=== PATIENT | female | born 1950 | race Caucasian/White ===

== ENCOUNTER 2018-11-07 12:14 | Inpatient (IN) ==
[2018-11-07] MEDS ORDERED: Ringers Solution, Lactated 1,000 ML IVC SCH (13:00)
[2018-11-07] MEDS ORDERED: Acetaminophen IV 1,000 MG/100 ML INFUS..BTL IVPB ONE (13:55)
[2018-11-07] MEDS ORDERED: Famotidine 20 MG/2 ML VIAL IVP ONE (13:55)
[2018-11-07] MEDS ORDERED: traMADol 50 MG TABLET PO ONE ×2 (13:56→14:10)
--- NOTE | 2018-11-07 14:01 | Anesthesia Evaluation PreOp ---
Date of Encounter: 11/07/18 Time of Encounter: 14:00 - Past History Planned Operation: Robotic Lap Assisted Cholecystectomy Cardiac History: HTN, Hyperlipidemia, Other (CAD Left Heart Cath showed mod CAD normal EF) Pulmonary History: Former smoker, COPD GATE CUTTER History: CVA (Residual Left sided weakness), Other (Restless Leg) Other Medical History: Renal (CKD), Diabetes Type II, GERD, Other (Morbid Obesity) Anesthesia History: No Prior Anesthetic Complications : No Alcohol Use: occasionally, heavy Drug use: none Medications and Allergies Albuterol Sulfate [Ventolin Hfa] 2 gm IH Q6H PRN 07/28/18 [History] Buspirone HCl [Buspar] 10 mg PO QAM 07/28/18 [History] Insulin ASPART [Novolog Flexpen] 2 - 10 unit SQ QID 07/28/18 [History] Simvastatin [Zocor] 40 mg PO DAILY 07/28/18 [History] Tizanidine HCl [Zanaflex] 4 mg PO HS 07/28/18 [History] Trazodone HCl 100 mg PO HS 07/28/18 [History] Aspirin 81 mg PO DAILY 09/19/18 [History] Acetaminophen [Extra Strength Non-Aspirin] 1,000 mg PO Q4H PRN 11/07/18 [History] Insulin DETEMIR [Levemir] 48 units SQ DAILY 11/07/18 [History] Insulin DETEMIR [Levemir] 60 units SQ HS 11/07/18 [History] Lisinopril [Zestril] 10 mg PO DAILY 11/07/18 [History] Allergy/AdvReac Type Severity Reaction Status Date / Time Amoxicillin [From Augmentin] Allergy See Verified 11/07/18 13:03 Comments clavulanic acid Allergy See Verified 11/07/18 13:03 [From Augmentin] Comments nitrofurantoin Allergy unknown Verified 11/07/18 13:03 sertraline [From Zoloft] Allergy unknown Verified 11/07/18 13:03 shellfish derived Allergy Anaphylaxis Verified 11/07/18 13:03 Sulfa (Sulfonamide Allergy Hives Verified 11/07/18 13:03 Antibiotics) meperidine [From Demerol] AdvReac Headache Verified 11/07/18 13:03 - Meds/Allergy Pre-op Review Medications Reviewed: Yes Allergies Reviewed: Yes Beta Blockers on Current Med List: No Anesthesia Results - Labs Laboratory Tests 10/23/18 10/23/18 11:47 11:47 Hgb 11.5 Hct 38.1 Plt Count 143 Sodium 136 Potassium 5.6 H BUN 49 H Creatinine 1.39 H - Imaging EKG: report reviewed (SR) Anesthesia Exam O2 Sat Height 1.7 m Height 1.7 m Weight 137.438 kg Weight 137.438 kg O2 Sat by Pulse Oximetry 100 Vital Signs Temp Pulse Resp BP Pulse Ox 98.2 F 86 18 123/57 100 11/07/18 12:48 11/07/18 12:48 11/07/18 12:48 11/07/18 12:48 11/07/18 12:48 Height: 5'7 Weight: 303 lbs NPO (# of Hours): MN Pain Scale: 0 - HEENT Pupil (Motor): Pupils equal, EOMI Mallampati: III Denture Type: Upper: Complete (upper dentures) Oral Opening: Less than or equal to 3 - GATE CUTTER LOC: Oriented GATE CUTTER Motor: Normal RUE, Normal RLE, Normal Face, Deficit LUE (weakness), Deficit LLE GATE CUTTER Sensory: Normal: RUE, LUE (slight paresthesia), RLE, LLE, Face - Cardiac Rhythm: Regular Murmur: None JVD: No Carotid Bruit: No - Pulmonary Breath Sounds: bilateral Clear Respiratory Effort: Symmetrical Anesthesia Assess/Plan ASA Score: 3 (HTN COPD MO DM CKD CVA) Level of consciousness: Cooperative, Oriented Anesthetic Plan: General Autologous Blood: No Monitoring Plan: Standard Monitors Recovery Plan: PACU (Discussed GA, agrees to proceed)
[2018-11-07] MEDS ORDERED: CeFAZolin Syr 3,000MG/30 ML 3,000 MG/30 ML SYRINGE IVPB ONE (14:28)
--- NOTE | 2018-11-07 14:39 | General Surg History&Physical ---
Date of Encounter: 11/07/18 Time of Encounter: 14:37 Assessment and Plan (1) Symptomatic cholelithiasis Current Visit: Yes Status: Chronic The assessment and plan as outlined above was discussed with the patient and/or family members who expressed understanding and agreement. All questions were answered. planning robotic cholecystectomy, possible cholangiograms/open, consent previously obtained History of Present Illness Chief complaint: symptomatic cholelithiasis HPI: Ms. Triana is a 67 year old female with symptomatic cholelithiasis, lft/wbc wnl. Past Med Surg Social Fam HX - Past Medical History Medical history: cancer, CVA, diabetes, GERD, hyperlipidemia, hypertension Additional medical history: right side weakness CVA. rectal CA and cervical CA with chemo and radiation Psychiatric history: anxiety, depression, prior suicide attempt, schizophrenia - Past Surgical History Surgical History: cancer surgery, colectomy, other Additional surgical history: colon cancer. gastric bypass - Social History Smoking Status: Former smoker Smokeless Tobacco Status: No Alcohol use: occasionally, heavy Drug use: none - Family History Mother Living Status: Hx Family Cardiac Disorders: Yes (father heart attacks) Hx Family Respiratory Disorders: Yes (dad unknown, smoker) Hx Family Cancer: Yes (mother, utreus) Hx Family GI Disorders: No Hx Family Endocrine Disorder: Yes (mother DM) Hx Family Neuromuscular Disorders: No Hx Family Neurologic Disorders: No Hx Family HEENT Disorders: No Hx Family Autoimmune Disorders: No Medications and Allergies Albuterol Sulfate [Ventolin Hfa] 2 gm IH Q6H PRN 07/28/18 [History] Buspirone HCl [Buspar] 10 mg PO QAM 07/28/18 [History] Insulin ASPART [Novolog Flexpen] 2 - 10 unit SQ QID 07/28/18 [History] Simvastatin [Zocor] 40 mg PO DAILY 07/28/18 [History] Tizanidine HCl [Zanaflex] 4 mg PO HS 07/28/18 [History] Trazodone HCl 100 mg PO HS 07/28/18 [History] Aspirin 81 mg PO DAILY 09/19/18 [History] Acetaminophen [Extra Strength Non-Aspirin] 1,000 mg PO Q4H PRN 11/07/18 [History] Insulin DETEMIR [Levemir] 48 units SQ DAILY 11/07/18 [History] Insulin DETEMIR [Levemir] 60 units SQ HS 11/07/18 [History] Lisinopril [Zestril] 10 mg PO DAILY 11/07/18 [History] Allergy/AdvReac Type Severity Reaction Status Date / Time Amoxicillin [From Augmentin] Allergy See Verified 11/07/18 13:03 Comments clavulanic acid Allergy See Verified 11/07/18 13:03 [From Augmentin] Comments nitrofurantoin Allergy unknown Verified 11/07/18 13:03 sertraline [From Zoloft] Allergy unknown Verified 11/07/18 13:03 shellfish derived Allergy Anaphylaxis Verified 11/07/18 13:03 Sulfa (Sulfonamide Allergy Hives Verified 11/07/18 13:03 Antibiotics) meperidine [From Demerol] AdvReac Headache Verified 11/07/18 13:03 Review of Systems All systems PM: reviewed and no additional remarkable complaints except as stated All systems PM: The remainder of the systems were reviewed and are negative General Surgery Exam Initial Vital Signs Temp Pulse Resp BP Pulse Ox 98.2 F 86 18 123/57 100 11/07/18 12:48 11/07/18 12:48 11/07/18 12:48 11/07/18 12:48 11/07/18 12:48 - General physical appearance well nourished, no distress, obese - Eyes PERRL, normal ocular movement - ENT normal mucosa, normocephalic - Neck trachea midline - Respiratory normal expansion, normal respiratory effort - Cardiovascular Cardiovascular exam: Present: RRR - Abdomen Abdomen general surgery: Present: soft, non tender - Integumentary Integumentary general surgery: Present: no abnormal pigmentation Results - Labs Abnormal lab results POC Glucose 107 mg/dL (70-99) H 11/07/18 12:45 All other labs normal.
--- NOTE | 2018-11-07 14:40 | Operative Note ---
Date of procedure: 11/07/18 Pre-op diagnosis: symptomatic cholelithiasis Post-op diagnosis: same Procedure: Anesthesia induction, skin incision Complications: hypotension Anesthesia: MASHAA, local Surgeon: Nathaly Segovia Was there an registered sales assistant present: Yes Louver Mortiser Operator: Shannan España Estimated blood loss (cc): 1 Specimen: none Condition: other Disposition: PACU Procedure in Detail: Patient was brought into the operating suite and placed supine on the operating table. Sign in was performed and everyone was in agreement. Anesthesia was induced and patient was endotracheally intubated by anesthesia without incident. Bilateral arms were kept out to the patient's side to facilitate blood pressure obtainment as well as to allow her IV to flow freely. Abdomen was prepped and draped in the usual sterile fashion. Timeout was performed again everyone was in agreement. Stab incision in the right upper quadrant was made with an 11 blade. Veress needle was placed through this and a water drop test confirmed placement but the abdomen was not insufflating, this was attempted a second time without success. A small incision in middle abdomen was made with 11 blade and towel clips are placed on either side of the umbilicus for retraction. During the attempt to place the Veress needle into the abdomen the patient became very hypotensive in the attempt was terminated. Patient blood pressure was labile and due to anesthesia and hypotension concerns the procedure was terminated
--- NOTE | 2018-11-07 14:42 | Discharge Summary ---
Outpatient Proc Discharge Plan - Plan Instructions: Laparoscopic Cholecystectomy (DC) Additional Instructions: No lifting more than 20 pounds for 2 weeks. Okay to take a shower in 24 hours. No tub baths or pools for 1 week. Okay to ride in the car wearing a seatbelt and climb steps. No driving until off narcotics for 24 hours and able to react safely Remove Steri-Strips in 1 week Do not take pain medicine/narcotics on an empty stomach it will likely cause nausea and possibly vomiting. If pain medication is too strong okay to break in half ok to use ice packs to area(s) of pain - on for 20 minutes, off for 20 minutes Prescriptions: OxyCODONE/APAP 5/325 [Percocet 5/325 MG] 1 each PO Q4HR PRN 6 Days #25 tablet PRN Reason: Pain Docusate [Colace] 100 mg PO BID #30 capsule Home Medications: Albuterol Sulfate [Ventolin Hfa] 2 gm IH Q6H PRN 07/28/18 [History] Buspirone HCl [Buspar] 10 mg PO QAM 07/28/18 [History] Insulin ASPART [Novolog Flexpen] 2 - 10 unit SQ QID 07/28/18 [History] Simvastatin [Zocor] 40 mg PO DAILY 07/28/18 [History] Tizanidine HCl [Zanaflex] 4 mg PO HS 07/28/18 [History] Trazodone HCl 100 mg PO HS 07/28/18 [History] Aspirin 81 mg PO DAILY 09/19/18 [History] Acetaminophen [Extra Strength Non-Aspirin] 1,000 mg PO Q4H PRN 11/07/18 [History] Docusate [Colace] 100 mg PO BID #30 capsule 11/07/18 [Rx] Insulin DETEMIR [Levemir] 48 units SQ DAILY 11/07/18 [History] Insulin DETEMIR [Levemir] 60 units SQ HS 11/07/18 [History] Lisinopril [Zestril] 10 mg PO DAILY 11/07/18 [History] OxyCODONE/APAP 5/325 [Percocet 5/325 MG] 1 each PO Q4HR PRN 6 Days #25 tablet 11/07/18 [Rx]
[2018-11-07] MEDS ORDERED: Dexamethasone 4 MG/ML VIAL ONE (15:27)
[2018-11-07] MEDS ORDERED: *HR* FentaNYL (PF) 100 MCG/2 ML VIAL ONE (15:27)
[2018-11-07] MEDS ORDERED: Ondansetron 4 MG/2 ML VIAL ONE (15:27)
[2018-11-07] MEDS ORDERED: Lidocaine -MPF 2% 2 ML VIAL ONE (15:27)
[2018-11-07] MEDS ORDERED: *HR* Midazolam HCl 2 MG/2 ML VIAL ONE (15:27)
[2018-11-07] MEDS ORDERED: *HR* Succinylcholine 200 MG/10 ML VIAL IVP ONE (15:28)
[2018-11-07] MEDS ORDERED: Neostigmine Methylsulfate 3 MG/3 ML SYRINGE ONE (15:28)
[2018-11-07] MEDS ORDERED: *HR* Propofol 200 MG/20 ML VIAL IVP ONE (15:28)
[2018-11-07] MEDS ORDERED: Lidocaine -MPF 4% 5 ML AMPUL ONE (15:28)
[2018-11-07] MEDS ORDERED: *HR* Rocuronium Bromide 50 MG/5 ML VIAL ONE (15:28)
[2018-11-07] MEDS ORDERED: *HR* PHENYLEPHRINE 1,000 MCG/10 ML SYRINGE IVP ONE (16:56)
--- NOTE | 2018-11-07 17:28 | Anesthesia Progress Note ---
Date of Encounter: 11/07/18 Time of Encounter: 17:23 Anesthesia Note - Note Note: 11/07/18 17:23 After cautious induction of anesthesia, patient become profoundly hypotensive minimally responsive to phenylephrine. Also, she had ~100 ml of bloody gastric fluid s/p OG placement. Possible differential includes GI bleed/anemia causing intra-operative hypotension, structural/valvular heart disease, etc. Patient will be admitted for serial HH and TTE. Of note, patient was mildly hyperkalemic on pre-operative labs. No arrhythmias occurred during induction of anesthesia. As hemodynamic instability occurred prior to operative start, prior to insufflation of the abdomen, surgery was cancelled in attempts for an underlying explanation for the profound hypotension after induction of anesthesia. Reason for Cancellation: Other
--- NOTE | 2018-11-07 17:48 | Anesthesia Evaluation Post Op ---
Date of Encounter: 11/07/18 Time of Encounter: 17:47 - Vital Signs Vital Signs: Vital Signs/O2 Sat, Most Current Temp Pulse Resp BP Pulse Ox 97.6 F 85 16 107/41 95 11/07/18 17:22 11/07/18 17:42 11/07/18 17:42 11/07/18 17:42 11/07/18 17:42 - Lungs Lungs: Clear Ascult./Percussion - Airway Airway: Non-obstructed - Cardiovascular Regular Rate - Mental Status Mental Status: Alert & Oriented, Answers Appropriately - Pain Pain Scale: 0 Pain Scale used: Numeric (1 - 10) - Nausea Vomiting Nausea Vomiting: Not Present - Hydration Hydration: Tolerates oral liquids, Has not voided - Discharge PostOp Status: Transfer Patient to floor
[2018-11-07 19:11] LABS: Hematocrit 23.7 % (35.3-44.9); Hemoglobin 6.9 g/dL (11.5-15.4)
[2018-11-07 20:41] LABS: Basophils % 0.4 %; Eosinophils % 0.1 %; Hematocrit 24.3 % (35.3-44.9); Hemoglobin 7.2 g/dL (11.5-15.4); Immature Granulocytes % 0.4 % (0-4); Lymphocytes # 0.7 K/mcL (0.6-4.6); Lymphocytes % 9.8 %; Mean Corpuscular HGB Conc 29.6 g/dL (31.6-35.5); Mean Corpuscular Hemoglobin 28.3 pg (28.0-33.3); Mean Corpuscular Volume 95.7 fL (83.0-100.0); Mean Platelet Volume 10.9 fL (9.4-12.4); Monocytes # 0.1 K/mcL (0.0-1.3); Platelet Count 355 K/mcL (140-400); Red Blood Count 2.54 M/mcL (3.82-4.97); Red Cell Distribution Width 15.7 % (11.5-14.5); Segmented Neutrophils % 88.3 %
[2018-11-07 20:46] LABS: Estimated Average Glucose 174 mg/dl; Hemoglobin A1C 7.7 %
[2018-11-07] MEDS: 0.9 % Sodium Chloride 1,000 ML IVC SCH (20:55)
[2018-11-07] MEDS: Pantoprazole 40 MG VIAL IVP SCH (20:57)
[2018-11-07 20:59] LABS: Alanine Aminotransferase 5 Units/L (7-52); Albumin 3.4 g/dL (3.5-5.7); Albumin/Globulin Ratio 1.2 (1.1-2.2); Alkaline Phosphatase 85 Units/L (34-104); Aspartate Amino Transferase 10 Units/L (13-39); BUN/Creatinine Ratio 39 (6-26); Bilirubin,Direct 0.1 mg/dL (0.0-0.2); Bilirubin,Indirect 0.2 mg/dL (0.0-1.2); Bilirubin,Total 0.3 mg/dL (0.3-1.0); Blood Urea Nitrogen 39 mg/dL (8-23); Calcium 8.9 mg/dL (8.6-10.3); Carbon Dioxide 23 mEq/L (23-29); Chloride 111 mEq/L (98-107); Globulin 2.9 g/dL (2.4-3.5); Glucose 151 mg/dL (70-105); Osmolality,Calculated 298 (280-300); Potassium 6.3 mEq/L (3.5-5.1); Sodium 138 mEq/L (136-145); Total Protein 6.3 g/dL (6.4-8.9); eGFR For Non-African Americans 55 (> 60)
[2018-11-07] MEDS ORDERED: *HR* Dextrose 50 % in Water (Syg) 50 ML SYRINGE IVP ONE (21:12)
[2018-11-07] MEDS ORDERED: Insulin Human Regular 10 UNIT in 0.9 % Sodium Chloride 10 ML IV ONE (21:12)
[2018-11-07] MEDS ORDERED: Albuterol 2.5 MG/3 ML NEBULIZER IH ONE (21:12)
[2018-11-07] MEDS ORDERED: *HR* Dextrose 50 % in Water (Syg) 50 ML SYRINGE IVP PRN (21:16)
[2018-11-07] MEDS ORDERED: Dextrose Gel 15 GM/37.5 ML TUBE PO PRN ×2 (21:16)
[2018-11-07 21:36] LABS: % Iron Saturation 5 % (15-50); Iron 19 mcg/dL (50-170); Transferrin 294 mg/dL (203-362)
[2018-11-07 21:55] LABS: Ferritin 29 ng/mL (10-120)
[2018-11-07] MEDS ORDERED: Sucralfate 1 GM TABLET PO SCH (22:00)
[2018-11-08] MEDS ORDERED: 0.9 % Sodium Chloride 250 ML ONE ×2 (00:58→04:30)
--- NOTE | 2018-11-08 01:28 | Internal Med History&Physical ---
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 She was admitted for elective laparoscopic cholecystectomy in the setting of symptomatically cholelithiasis but surgery had to be aborted after developing profound hypotension that was minimally responsive to phenylephrine to her induction of anesthesia. She is now admitted to medicine for further evaluation. On my assessment she is lying in bed in no discomfort. She tells me she has had an episode of upper GI bleed in the past where she was vomiting effie blood and was treated at [facility]. She also tells me now that she has been having tarry dark stool over the past few weeks but did not seek medical attention for this. It is noted in the anesthesia note that approximately 100 mL of bloody gastric fluid was noted after OG placement. H/H done in the recovery room reveals a Hgb of 6.9. Her baseline is closer to 12, noting a Hgb of 11.5 on 10/23/18. Vitals: Reviewed General: Obese white woman lying in bed in NAD. Skin: Warm, pale and dry. HEENT: Dry mucous membranes. (+) conjunctivae pallor. Neck: No lymphadenopathy. No JVD. No carotid bruits. No palpable thyroid. Chest: Normal thoracic expansion. Normal breath sounds. Clear to auscultation. Heart: Normal S1 & S2; rhythmic. No rubs or murmurs. Abdomen: Obese, soft and non-tender to palpation. Extremities: No clubbing, cyanosis or edema. No calf tenderness. Normal distal pulses. Neurological: Awake, alert and oriented to person, place and time. Psych: Affect appropriate. Assessment/Plan Hypotension: Intraoperative during anesthesia induction. Likely due to active GI bleed causing anemia and exacerbated by the anesthetic effects. Fluid resuscitation has been started with 200ml of saline/hr. Acute blood loss anemia: Secondary to GI bleed, seemingly upper in etiology. This has likely been going on for the past 2 weeks unexpectedly. Will transfuse 2 units of blood tonight and keep NPO awaiting GI consultation as she will need an endoscopy. Start pantoprazole 40mg BID. Hyperkalemia: She seemingly has a tendency to be hyperkalemic; she may have some form of RTA. Will administer temporizing measures for now with dextrose/insulin combination and albuterol with calcium gluconate pending EKG assessment. Diabetes: Will place on insulin sliding scale. Past Med Surg Social Fam HX - Past Medical History Medical history: cancer, CVA, diabetes, GERD, hyperlipidemia, hypertension Additional medical history: right side weakness CVA. rectal CA and cervical CA with chemo and radiation Psychiatric history: anxiety, depression, prior suicide attempt, schizophrenia - Past Surgical History Surgical History: cancer surgery, colectomy, other Additional surgical history: colon cancer. gastric bypass - Social History Smoking Status: Former smoker Smokeless Tobacco Status: No Alcohol use: occasionally Drug use: none - Family History Mother Living Status: Hx Family Cardiac Disorders: Yes (father heart attacks) Hx Family Respiratory Disorders: Yes (dad unknown, smoker) Hx Family Cancer: Yes (mother, utreus) Hx Family GI Disorders: No Hx Family Endocrine Disorder: Yes (mother DM) Hx Family Neuromuscular Disorders: No Hx Family Neurologic Disorders: No Hx Family HEENT Disorders: No Hx Family Autoimmune Disorders: No Internal Medicine - H&P: Meds RX: Albuterol Sulfate [Ventolin Hfa] 2 gm IH Q6H PRN 07/28/18 [History] RX: Buspirone HCl [Buspar] 10 mg PO QAM 07/28/18 [History] RX: Insulin ASPART [Novolog Flexpen] 2 - 10 unit SQ QID 07/28/18 [History] RX: Simvastatin [Zocor] 40 mg PO DAILY 07/28/18 [History] RX: Tizanidine HCl [Zanaflex] 4 mg PO HS 07/28/18 [History] RX: Trazodone HCl 100 mg PO HS 07/28/18 [History] RX: Aspirin 81 mg PO DAILY 09/19/18 [History] Docusate [Colace] 100 mg PO BID #30 capsule 11/07/18 [Rx] OxyCODONE/APAP 5/325 [Percocet 5/325 MG] 1 each PO Q4HR PRN 6 Days #25 tablet 11/07/18 [Rx] RX: Acetaminophen [Extra Strength Non-Aspirin] 1,000 mg PO Q4H PRN 04/15/19 [History] RX: Insulin DETEMIR [Levemir] 48 units SQ DAILY 11/07/18 [History] RX: Insulin DETEMIR [Levemir] 60 units SQ HS 11/07/18 [History] RX: Lisinopril [Zestril] 10 mg PO DAILY 11/07/18 [History] Allergy/AdvReac Type Severity Reaction Status Date / Time Amoxicillin [From Augmentin] Allergy See Verified 11/07/18 13:03 Comments clavulanic acid Allergy See Verified 11/07/18 13:03 [From Augmentin] Comments nitrofurantoin Allergy unknown Verified 11/07/18 13:03 sertraline [From Zoloft] Allergy unknown Verified 11/07/18 13:03 shellfish derived Allergy Anaphylaxis Verified 11/07/18 13:03 Sulfa (Sulfonamide Allergy Hives Verified 11/07/18 13:03 Antibiotics) meperidine [From Demerol] AdvReac Headache Verified 11/07/18 13:03 All Systems PM: A 10-system review of systems was performed and is negative for pertinent findings except as documented above in the HPI. - Constitutional Vitals: Temp Pulse Resp BP Pulse Ox 98.1 F 77 16 95/63 100 11/07/18 20:43 11/07/18 20:43 11/07/18 23:34 11/07/18 20:43 11/07/18 23:34 Exam: . Internal Med - H&P Results - Labs CBC & Chem 7: 11/07/18 20:29 11/07/18 20:29 Labs: Short CBC 11/07/18 11/07/18 Range/Units 18:58 20:29 WBC 6.8 (4.3-11.1) K/mcL Hgb 6.9 L 7.2 L (11.5-15.4) g/dL Hct 23.7 L 24.3 L (35.3-44.9) % Plt Count 355 (140-400) K/mcL Neutrophils # 6.0 (1.6-8.9) K/mcL BMP 11/07/18 20:29 Sodium 138 Potassium 6.3 H Chloride 111 H Carbon Dioxide 23 BUN 39 H Creatinine 1.01 Glucose 151 H Calcium 8.9 Liver Function 04/15/19 Range/Units 20:29 Total Bilirubin 0.3 (0.3-1.0) mg/dL Direct Bilirubin 0.1 (0.0-0.2) mg/dL AST 10 L (13-39) Units/L ALT 5 L (7-52) Units/L Alkaline Phosphatase 85 (34-104) Units/L Albumin 3.4 L (3.5-5.7) g/dL - Time Spent With Patient Total time spent is greater than 50% in coordination of care (as documented) at patient's floor/unit and/or counseling patient: Greater than 35 minutes
[2018-11-08] MEDS: 0.9 % Sodium Chloride 1,000 ML IVC SCH ×2 (03:16→10:22)
[2018-11-08 04:43] LABS: Prothrombin Time 11.7 Seconds (9.4-12.1)
[2018-11-08 04:46] LABS: Activated Partial Thrombo Time 26.1 Seconds (26.0-36.0)
[2018-11-08 05:07] LABS: Basophils % 0.2 %; Hematocrit 25.2 % (35.3-44.9); Immature Granulocytes % 0.4 % (0-4); Immature Platelets 3.9 % (1.1-6.1); Lymphocytes # 0.3 K/mcL (0.6-4.6); Lymphocytes % 4.7 %; Mean Corpuscular HGB Conc 30.2 g/dL (31.6-35.5); Mean Corpuscular Hemoglobin 28.8 pg (28.0-33.3); Mean Corpuscular Volume 95.5 fL (83.0-100.0); Mean Platelet Volume 11.7 fL (9.4-12.4); Monocytes # 0.1 K/mcL (0.0-1.3); Monocytes % 1.1 %; Platelet Count 317 K/mcL (140-400); Red Blood Count 2.64 M/mcL (3.82-4.97); Red Cell Distribution Width 15.8 % (11.5-14.5); Segmented Neutrophils % 93.6 %
[2018-11-08 05:08] LABS: Hemoglobin 7.6 g/dL (11.5-15.4)
[2018-11-08 05:09] LABS: Bilirubin,Urine Negative (Negative); Blood,Urine Negative (Negative); Clarity,Urine Cloudy (Clear); Color,Urine Yellow (Yellow); Glucose,Urine (UA) 100 mg/dL (Normal); Ketones,Urine 15 mg/dL (Negative); Leukocyte Esterase,Urine Moderate (Negative); Nitrite,Urine Negative (Negative); Protein,Urine Trace mg/dL (Neg-Trace); Specific Gravity,Urine 1.019 (1.010-1.025); Urobilinogen,Urine Normal (Normal)
[2018-11-08 05:12] LABS: Bacteria,Urine Many per hpf (None-Few); Hyaline Casts,Urine None Seen per lpf (None-Few); Squamous Epithelial Cell,Urine Many per lpf (None-Few); WBC,Urine 30-50 per hpf (0-3)
[2018-11-08] MEDS: Insulin LISPRO 300 UNITS/3 ML VIAL SQ SCH ×4 (05:24→18:35)
[2018-11-08] MEDS: Pantoprazole 40 MG VIAL IVP SCH ×2 (06:17→17:37)
[2018-11-08 07:53] LABS: BUN/Creatinine Ratio 37 (6-26); Blood Urea Nitrogen 40 mg/dL (8-23); Calcium 8.4 mg/dL (8.6-10.3); Carbon Dioxide 18 mEq/L (23-29); Chloride 110 mEq/L (98-107); Glucose 407 mg/dL (70-105); Osmolality,Calculated 311 (280-300); Potassium 6.9 mEq/L (3.5-5.1); Sodium 137 mEq/L (136-145); eGFR For Non-African Americans 51 (> 60)
--- NOTE | 2018-11-08 08:07 | Internal Med Progress Note ---
Hospitalist Progress Note - Encounter Date of Encounter: 11/08/18 Time of Encounter: 08:00 - Subjective Interval History: Was hyperkalemic this am at 6.9 - Exam Vitals: Temp Pulse Resp BP Pulse Ox 98.9 F 113 16 109/68 100 11/08/18 05:01 11/08/18 05:01 11/08/18 05:01 11/08/18 05:01 11/07/18 23:34 Exam: General appearance: Present: A&O X 3, no acute distress Head exam: Present: normocephalic Respiratory exam: Present: CTAB. Absent: accessory muscle use, rales, rhonchi, wheezes Cardiovascular exam: Present: RRR, +S1, +S2. Absent: diastolic murmur, gallop, rubs, systolic murmur GI/Abdominal exam: Soft, NT, ND, +BS Extremities exam: Absent: pedal edema Neurological exam: Present: alert, oriented X3, no focal deficits. Absent: altered - Assessment and Plan (1) Acute blood loss anemia Current Visit: Yes Status: Acute Assessment and Plan: Patient complains of dark stools and came in with a hemoglobin of 6.9 Transfuse 2 units PRBC. IV fluids. ON protonix 40mg IV BID. GI consulted and plan for endoscopy today (2) Hyperkalemia Current Visit: Yes Status: Acute Assessment and Plan: Potassium noted to be 6.9 this am with peaked T waves. Received cocktail of kayexalate, calcium gluconate and insulin and D50 Trended down to 5.8. Plan to repeat another potassium. Renal consulted and recs appreciated (3) Symptomatic cholelithiasis Current Visit: Yes Status: Chronic Assessment and Plan: Patient initially went for a laparoscopic cholecystectom which had to be terminated due to hypotension possibly from GI bleed Subsequently admitted to the hospitalist service. Outpatient f/u with surgery (4) Diabetes Current Visit: Yes Status: Acute Assessment and Plan: Continue insulin and monitor fingersticks (5) Morbid obesity Current Visit: Yes Status: Acute Assessment and Plan: Diet and exercise (6) DVT prophylaxis Current Visit: Yes Status: Acute Assessment and Plan: SCds - Time Spent with Patient Total time spent is greater than 50% in coordination of care (as documented) at patient's floor/unit and/or counseling patient: Internal Medicine: Result - Labs CBC & Chem 7: 11/08/18 04:14 11/08/18 13:05 Labs: Short CBC 11/07/18 11/07/18 11/08/18 Range/Units 18:58 20:29 04:14 WBC 6.8 5.3 (4.3-11.1) K/mcL Hgb 6.9 L 7.2 L 7.6 L (11.5-15.4) g/dL Hct 23.7 L 24.3 L 25.2 L (35.3-44.9) % Plt Count 355 317 (140-400) K/mcL Neutrophils # 6.0 5.0 (1.6-8.9) K/mcL BMP 11/07/18 11/08/18 11/08/18 20:29 01:29 06:49 Sodium 138 137 Potassium 6.3 H 3.4 L D 6.9 H* D Chloride 111 H 110 H Carbon Dioxide 23 18 L BUN 39 H 40 H Creatinine 1.01 1.08 Glucose 151 H 407 H Calcium 8.9 8.4 L Liver Function 11/07/18 Range/Units 20:29 Total Bilirubin 0.3 (0.3-1.0) mg/dL Direct Bilirubin 0.1 (0.0-0.2) mg/dL AST 10 L (13-39) Units/L ALT 5 L (7-52) Units/L Alkaline Phosphatase 85 (34-104) Units/L Albumin 3.4 L (3.5-5.7) g/dL Urine 11/08/18 Range/Units 04:20 Urine Color Yellow (Yellow) Urine Clarity Cloudy A (Clear) Urine pH 6.0 (5.0-8.0) pH Units Ur Specific [place] 1.019 (1.010-1.025) Urine Protein Trace (Neg-Trace) mg/dL Urine Glucose (UA) 100 H (Normal) mg/dL - ABG Interpretation ABG results: PT/INR, D-dimer PT 11.7 Seconds (9.4-12.1) 11/08/18 04:14 - Impressions Impressions Echocardiogram 11/07/18 18:27 Impressions: LVEF 60%. Mild left ventricular diastolic dysfunction. Normal LV chamber size, wall thickness and systolic function. The right ventricle was not well visualized but appeared grossly normal in size and function Unable to estimate RVSP due to lack of TR jet. No significant valvular dysfunction. Left Ventricular Wall Motion: Rest Echo Findings All wall segments showed normal motion. Findings: Study Quality * Technically sub-optimal due to poor echocardiographic windows. ECG Findings * Normal sinus rhythm. Left Ventricle * LVEF 60%. * Mild left ventricular diastolic dysfunction. * Normal LV chamber size, wall thickness and systolic function. Right Ventricle * The right ventricle was not well visualized but appeared grossly normal in size and function Left Atrium * Normal left atrial size. Right Atrium * Normal right atrial size. Aortic Valve * Aortic valve not well visualized. * No aortic regurgitation. * No aortic stenosis. Mitral Valve * No mitral stenosis. * Normal mitral valve structure. * Trace mitral regurgitation. Tricuspid Valve * Trace tricuspid regurgitation. * Unable to estimate RVSP due to lack of TR jet. * No tricuspid stenosis. * Normal tricuspid valve structure. Pulmonic Valve * Trace pulmonic regurgitation. Aorta * Normally sized aortic root. Pericardium * The pericardium appears normal. IVC * The IVC is not well evaluated. Pulmonary Artery * Pulmonary artery not well visualized. Consult Discharge Plan - Plan Referrals: Nathaly Segovia MD [Partnered Physician] - 11/24/18 9:55 am NONE,PCP [Primary Care Provider] - (4) Diabetes Qualifiers: Qualified Code(s): E11.9 - Type 2 diabetes mellitus without complications
[2018-11-08] MEDS ORDERED: Insulin LISPRO 300 UNITS/3 ML VIAL SQ ONE (08:32)
--- NOTE | 2018-11-08 08:32 | General Surgery Progress Note ---
Date of Encounter: 11/08/18 Time of Encounter: 08:30 - Assessment and Plan (1) Symptomatic cholelithiasis Current Visit: Yes Status: Chronic Per operative note on 11/07/2018, patient was in the operating room for an elective laparoscopic cholecystectomy. Anesthesia was introduced and an attempt was made to access the abdomen for insufflation. Insufflation was not successful and a small incision in the middle abdomen was made over the umbilicus. At this time she was noted to have hypotension and the procedure was terminated. She was admitted to the hospitalist service for blood pressure management. Per the hospitalist history and physical, patient reports an episode of vomiting Mickey blood approximately 1 week ago for which she was treated at [facility]. She also reports that she is been having dark tarry stool over the last few weeks did not seek medical attention. Her hemoglobin was 6.9. Her baseline appears closer to 12. She is currently being transfused 2 units of packed red blood cells. Will defer management to primary team. At this time, surgery recommends an interval/convalescent cholecystectomy when her acute issues have resolved. Diet/cares per primary team surgery will sign off at this time. Please call or reconsult if further questions or needs arise (2) Anemia Current Visit: Yes Status: Acute Likely acute G.I. bleed on chronic anemia 2/2 CKD stage III. Transfusions per primary team. Noted GI has been consulted for possible scopes given GI bleed. Will defer management to them. Qualifiers: Anemia type: unspecified type Qualified Code(s): D64.9 - Anemia, unspe cified (3) H/O malignant neoplasm of rectum Current Visit: Yes Status: Acute Per Dr Dalal note in archives (09/27/2012): Stage III rectal cancer. PT4 pN1 M0, low anterior resection 03/12/2011. Primary anastomosis [facility]. Perineural invasion present, 2.5-cm tumor, 16 lymph nodes, two of them had malignancy. CEA 1.2, 2010.Per Dr. Dalal note in archives (01/20/2012): Colonoscopy 01-01-2012 negative including biopsy of anstomotic site. REcords have been requested so that they can be scanned into her chart. (4) CKD (chronic kidney disease) Current Visit: Yes Status: Acute Management per primary team Qualifiers: Chronic kidney disease stage: stage 3 (moderate) Qualified Code(s): N18.3 - Chronic kidney disease, stage 3 (moderate) (5) Morbid obesity Current Visit: No Status: Acute History of attempted jose-[id number] Subjective Narrative: denies abodminal pain. reports she is frustrated that she is sick and is unsure if she wants to return for gall bladder surgery at this time. Requests to get OOB to chair Objective Vital Signs - Last 8 Hours Temp Pulse Resp BP Pulse Ox 11/08/18 07:36 100 11/08/18 05:01 98.9 F 113 16 109/68 11/08/18 04:55 98.7 F 114 16 118/68 11/08/18 01:51 98.2 F 116 17 106/64 11/08/18 01:36 98.4 F 108 16 92/60 11/08/18 01:30 98.4 F 109 17 85/56 Intake and Output 11/07/18 11/08/18 11/08/18 23:59 07:59 15:59 Intake Total 0 / 0 1350 / 1350 Output Total 100 / 100 200 / 200 Balance -100 / -100 1150 / 1150 Intake: IV Fluids 1000 / 1000 0.9 % Sodium Chloride 1,000 ML 1000 / 1000 @ 200 mls/hr IVC .Q5H [facility] Rx#: [id number] Oral 0 / 0 Blood Product 350 / 350 Rbcs Leuko Poor As-1 Unit 350 / 350 [id number] Rbcs Leuko Poor As-1 Unit 0 / 0 [id number] Output: Urine 100 / 100 200 / 200 Other: Blood Glucose* 300 395 - General physical appearance no distress, obese - ENT normal nares, normal mucosa, atraumatic, normocephalic - Neck Neck exam: trachea midline - Respiratory other (decreased respiratory effort) - Cardiovascular Cardiovascular exam: Present: distant heart sounds - Abdomen Abdomen: Present: bowel sounds present, soft, non tender - Incision Incision: Present: clean and dry, intact - Integumentary no rash - Neurologic normal sensation - Musculoskeletal normal posture - Psychiatric oriented to time, oriented to person, oriented to place, speech is normal, memory intact - Labs 11/08/18 04:14 11/08/18 06:49 Diabetes panel 11/07/18 11/07/18 11/08/18 Range/Units 20:29 20:29 01:29 Sodium 138 (136-145) mEq/L Potassium 6.3 H 3.4 L D (3.5-5.1) mEq/L Chloride 111 H (98-107) mEq/L Carbon Dioxide 23 (23-29) mEq/L BUN 39 H (8-23) mg/dL Creatinine 1.01 (0.60-1.20) mg/dL Glucose 151 H (70-105) mg/dL Hemoglobin A1c 7.7 H ( - 5.6) % Calcium 8.9 (8.6-10.3) mg/dL AST 10 L (13-39) Units/L ALT 5 L (7-52) Units/L Alkaline Phosphatase 85 (34-104) Units/L Albumin 3.4 L (3.5-5.7) g/dL 11/08/18 Range/Units 06:49 Sodium 137 (136-145) mEq/L Potassium 6.9 H* D (3.5-5.1) mEq/L Chloride 110 H (98-107) mEq/L Carbon Dioxide 18 L (23-29) mEq/L BUN 40 H (8-23) mg/dL Creatinine 1.08 (0.60-1.20) mg/dL Glucose 407 H (70-105) mg/dL Hemoglobin A1c ( - 5.6) % Calcium 8.4 L (8.6-10.3) mg/dL AST (13-39) Units/L ALT (7-52) Units/L Alkaline Phosphatase (34-104) Units/L Albumin (3.5-5.7) g/dL Calcium panel 11/07/18 11/08/18 Range/Units 20:29 06:49 Calcium 8.9 8.4 L (8.6-10.3) mg/dL Albumin 3.4 L (3.5-5.7) g/dL Pituitary panel 11/07/18 11/08/18 11/08/18 Range/Units 20: 01:29 06:49 Sodium 138 137 (136-145) mEq/L Potassium 6.3 H 3.4 L D 6.9 H* D (3.5-5.1) mEq/L Chloride 111 H 110 H (98-107) mEq/L Carbon Dioxide 23 18 L (23-29) mEq/L BUN 39 H 40 H (8-23) mg/dL Creatinine 1.01 1.08 (0.60-1.20) mg/dL Glucose 151 H 407 H (70-105) mg/dL Calcium 8.9 8.4 L (8.6-10.3) mg/dL Adrenal panel 11/07/18 11/08/18 11/08/18 Range/Units 20:29 01:29 06:49 Sodium 138 137 (136-145) mEq/L Potassium 6.3 H 3.4 L D 6.9 H* D (3.5-5.1) mEq/L Chloride 111 H 110 H (98-107) mEq/L Carbon Dioxide 23 18 L (23-29) mEq/L BUN 39 H 40 H (8-23) mg/dL Creatinine 1.01 1.08 (0.60-1.20) mg/dL Glucose 151 H 407 H (70-105) mg/dL Calcium 8.9 8.4 L (8.6-10.3) mg/dL Total Bilirubin 0.3 (0.3-1.0) mg/dL AST 10 L (13-39) Units/L ALT 5 L (7-52) Units/L Alkaline Phosphatase 85 (34-104) Units/L Albumin 3.4 L (3.5-5.7) g/dL Consult Discharge Plan - Plan Instructions: Laparoscopic Cholecystectomy (DC) Additional Instructions: No lifting more than 20 pounds for 2 weeks. Okay to take a shower in 24 hours. No tub baths or pools for 1 week. Okay to ride in the car wearing a seatbelt and climb steps. No driving until off narcotics for 24 hours and able to react safely Remove Steri-Strips in 1 week Do not take pain medicine/narcotics on an empty stomach it will likely cause nausea and possibly vomiting. If pain medication is too strong okay to break in half ok to use ice packs to area(s) of pain - on for 20 minutes, off for 20 minutes Referrals: NONE,PCP [Primary Care Provider] -
[2018-11-08] MEDS ORDERED: Pantoprazole 40 MG VIAL IVP SCH (09:00)
[2018-11-08] MEDS ORDERED: Calcium Gluconate 2,000 MG in 0.9 % Sodium Chloride 100 ML IVPB ONE (09:22)
[2018-11-08] MEDS ORDERED: Insulin Human Regular 10 UNIT in 0.9 % Sodium Chloride 10 ML IV ONE (09:26)
--- NOTE | 2018-11-08 10:00 | Electrocardiograph Report ---
[place] [id number] Test Date: 2018-11-07 Pat Name: Edie Triana Department: 115 Room: 3A31 Gender: F Associate Relations Specialist: : 1950 Requested By: Ysabel Feng Order Number: [id number] Reading MD: Gt Mueller Measurements Intervals [place] Rate: 83 P: 44 TN: 219 QRS: 31 QRSD: 82 T: 70 QT: 350 QTc: 390 Interpretive Statements SINUS RHYTHM WITH FIRST DEGREE AV BLOCK WITH OCCASIONAL SUPRAVENTRICULAR PREMATURE COMPLEXES Electronically Signed On 11-08-2018 9:59:11 EDT by Gt Mueller
--- NOTE | 2018-11-08 12:19 | Gastroenterology Consult Note ---
<Koffi Sandhu - Last Filed: 11/08/18 12:16> Date of Encounter: 11/08/18 Time of Encounter: 10:50 - Assessment and plan (1) Anemia Current Visit: Yes Status: Acute Assessment and plan: Hgb 6.9, iron 19, ferritin 29, and this AM Hgb 7.6 with MCV 95.5. Continue to monitor CBC and transfuse PRBC as needed. Plan for EGD today to r/o esophagitis, gastritis, duodenitis, PUD, MW tear, or AVM. Qualifiers: Anemia type: unspecified type Qualified Code(s): D64.9 - Anemia, unspecified (2) H/O malignant neoplasm of rectum Current Visit: Yes Status: Acute Assessment and plan: History stage III rectal cancer, s/p resection. (3) Symptomatic cholelithiasis Current Visit: Yes Status: Chronic - Time Spent With Patient Total time spent is greater than 50% in coordination of care (as documented) at patient's floor/unit and/or counseling patient: GI History of Present Illness - Data of Consult Patient: new to practice Consult date: 11/08/18 Requesting Physician: Leonel Michel - Consult Narrative Reason for consult: Anemia, melena History of present illness: Ms. Triana is a 67 year old female with PMHx of CVA, DM, GERD, HLD, HTN, colorectal cancer (resected) who was admitted for lap gene. Surgery was aborted due to profound hypotension that was minimally responsive to phenylephrine. She reports vomiting bright red blood 1-2 weeks ago, which was treated at [facility]. She reports melena over the past few weeks as well. Hgb 6.9, iron 19, ferritin 29, and this AM Hgb 7.6 with MCV 95.5. Procedures: Colonoscopy 6 years ago which showed cancer per patient report. NSAIDs: ASA Anticoagualtion: None Past Med Surg Social Fam HX - Past Medical History Medical history: cancer, CVA, diabetes, GERD, hyperlipidemia, hypertension Additional medical history: right side weakness CVA. rectal CA and cervical CA with chemo and radiation Psychiatric history: anxiety, depression, prior suicide attempt, schizophrenia - Past Surgical History Surgical History: cancer surgery, colectomy, other Additional surgical history: colon cancer. gastric bypass - Social History Smoking Status: Former smoker Smokeless Tobacco Status: No Alcohol use: occasionally Drug use: none - Family History Mother Living Status: Hx Family Cardiac Disorders: Yes (father heart attacks) Hx Family Respiratory Disorders: Yes (dad unknown, smoker) Hx Family Cancer: Yes (mother, danya) Hx Family GI Disorders: No Hx Family Endocrine Disorder: Yes (mother DM) Hx Family Neuromuscular Disorders: No Hx Family Neurologic Disorders: No Hx Family HEENT Disorders: No Hx Family Autoimmune Disorders: No - Gastrointestinal Gastrointestinal: Present: as per HPI - Constitutional Constitutional: as per HPI - EENT Eyes: as per HPI Ears: Present: as per HPI Nose, mouth and throat: Present: as per HPI - Cardiovascular Cardiovascular ROS: Present: as per HPI - Respiratory Respiratory IM: Present: as per HPI - Genitourinary Genitourinary: Absent: change in color, Urinary frequency - Neurological ROS Neurological GI: Present: as per HPI - Hematologic/Lymphatic Hematologic/Lymphatic pediatric: Present: as per HPI - Musculoskeletal Musculoskeletal ROS GI: Present: as per HPI - Integumentary Integumentary GI: Present: as per HPI - Psychiatric ROS Psychiatric GI: Present: as per HPI - Endocrine Endocrine IM: Present: as per HPI - Constitutional Vitals: Temp Pulse Resp BP Pulse Ox 98.1 F 99 18 127/75 96 11/08/18 10:20 11/08/18 10:20 11/08/18 10:20 11/08/18 10:20 11/08/18 10:20 General appearance: Present: cooperative, A&O X 3, no acute distress, answers questions appropriately - Head Head exam: Present: atraumatic, normocephalic - Eye Eye exam: Present: normal appearance, sclera anicteric - ENT ENT exam: Present: mucous membranes moist - Neck Neck exam general surgery: Present: normal inspection, trachea midline - Respiratory Respiratory exam: Present: CTAB - Cardiovascular Cardiovascular exam: Present: RRR, +S1, +S2 - GI/Abdominal GI/Abdominal exam: Present: soft, no peritoneal signs. Absent: distended, firm, guarding, tenderness Additional comments: obese - Rectal Rectal exam: Present: deferred - Extremities Exam Extremities exam: Present: warm - Neurological Exam Neurological exam: Present: no focal deficits - Psychiatric Psychiatric exam: Present: normal affect, normal mood - Skin Skin exam: Present: dry, intact, normal color, warm Results - Labs CBC & Chem 7: 0416/19 04:14 11/08/18 10:38 Labs: Last Result Calcium 8.4 mg/dL (8.6-10.3) L 11/08/18 06:49 Iron 19 mcg/dL (50-170) L 11/07/18 20:29 % Saturation 5 % (15-50) L 11/07/18 20:29 Transferrin 294 mg/dL (203-362) 11/07/18 20:29 Ferritin 29 ng/mL (10-120) 11/07/18 20:29 Entire Visit Hgb 7.6 g/dL (11.5-15.4) L 11/08/18 04:14 Hct 25.2 % (35.3-44.9) L 11/08/18 04:14 PT 11.7 Seconds (9.4-12.1) 11/08/18 04:14 Ferritin 29 ng/mL (10-120) 11/07/18 20:29 Total Bilirubin 0.3 mg/dL (0.3-1.0) 11/07/18 20:29 AST 10 Units/L (13-39) L 11/07/18 20:29 ALT 5 Units/L (7-52) L 11/07/18 20:29 - ABG ABG results: PT/INR, D-dimer PT 11.7 Seconds (9.4-12.1) 11/08/18 04:14 - Impressions Impressions Echocardiogram 11/07/18 18:27 Impressions: LVEF 60%. Mild left ventricular diastolic dysfunction. Normal LV chamber size, wall thickness and systolic function. The right ventricle was not well visualized but appeared grossly normal in size and function Unable to estimate RVSP due to lack of TR jet. No significant valvular dysfunction. Left Ventricular Wall Motion: Rest Echo Findings All wall segments showed normal motion. Findings: Study Quality * Technically sub-optimal due to poor echocardiographic windows. ECG Findings * Normal sinus rhythm. Left Ventricle * LVEF 60%. * Mild left ventricular diastolic dysfunction. * Normal LV chamber size, wall thickness and systolic function. Right Ventricle * The right ventricle was not well visualized but appeared grossly normal in size and function Left Atrium * Normal left atrial size. Right Atrium * Normal right atrial size. Aortic Valve * Aortic valve not well visualized. * No aortic regurgitation. * No aortic stenosis. Mitral Valve * No mitral stenosis. * Normal mitral valve structure. * Trace mitral regurgitation. Tricuspid Valve * Trace tricuspid regurgitation. * Unable to estimate RVSP due to lack of TR jet. * No tricuspid stenosis. * Normal tricuspid valve structure. Pulmonic Valve * Trace pulmonic regurgitation. Aorta * Normally sized aortic root. Pericardium * The pericardium appears normal. IVC * The IVC is not well evaluated. Pulmonary Artery * Pulmonary artery not well visualized. Consult Discharge Plan - Plan Referrals: Nathaly Segovia MD [Partnered Physician] - 11/24/18 9:55 am NONE,PCP [Primary Care Provider] - <Liborio Paredes - Last Filed: 11/08/18 17:51> Date of Encounter: 11/08/18 Time of Encounter: 17:30 - Time Spent With Patient Total time spent is greater than 50% in coordination of care (as documented) at patient's floor/unit and/or counseling patient: GI History of Present Illness - Data of Consult Requesting Physician: Leonel Michel - Consult Narrative History of present illness: Ms. Triana is a 67 year old female - Constitutional Vitals: Temp Pulse Resp BP Pulse Ox 98.1 F 99 18 127/75 96 11/08/18 10:20 11/08/18 10:20 11/08/18 10:20 11/08/18 10:20 11/08/18 10:20 Results - Labs CBC & Chem 7: 11/08/18 04:14 11/08/18 13:05 Labs: Last Result Calcium 8.4 mg/dL (8.6-10.3) L 11/08/18 06:49 Iron 19 mcg/dL (50-170) L 11/07/18 20:29 % Saturation 5 % (15-50) L 11/07/18 20:29 Transferrin 294 mg/dL (203-362) 11/07/18 20:29 Ferritin 29 ng/mL (10-120) 11/07/18 20:29 Entire Visit Hgb 7.6 g/dL (11.5-15.4) L 11/08/18 04:14 Hct 25.2 % (35.3-44.9) L 11/08/18 04:14 PT 11.7 Seconds (9.4-12.1) 11/08/18 04:14 Ferritin 29 ng/mL (10-120) 11/07/18 20:29 Total Bilirubin 0.3 mg/dL (0.3-1.0) 11/07/18 20:29 AST 10 Units/L (13-39) L 11/07/18 20:29 ALT 5 Units/L (7-52) L 11/07/18 20:29 - ABG ABG results: PT/INR, D-dimer PT 11.7 Seconds (9.4-12.1) 11/08/18 04:14 - Impressions Impressions Echocardiogram 11/07/18 18:27 Impressions: LVEF 60%. Mild left ventricular diastolic dysfunction. Normal LV chamber size, wall thickness and systolic function. The right ventricle was not well visualized but appeared grossly normal in size and function Unable to estimate RVSP due to lack of TR jet. No significant valvular dysfunction. Left Ventricular Wall Motion: Rest Echo Findings All wall segments showed normal motion. Findings: Study Quality * Technically sub-optimal due to poor echocardiographic windows. ECG Findings * Normal sinus rhythm. Left Ventricle * LVEF 60%. * Mild left ventricular diastolic dysfunction. * Normal LV chamber size, wall thickness and systolic function. Right Ventricle * The right ventricle was not well visualized but appeared grossly normal in size and function Left Atrium * Normal left atrial size. Right Atrium * Normal right atrial size. Aortic Valve * Aortic valve not well visualized. * No aortic regurgitation. * No aortic stenosis. Mitral Valve * No mitral stenosis. * Normal mitral valve structure. * Trace mitral regurgitation. Tricuspid Valve * Trace tricuspid regurgitation. * Unable to estimate RVSP due to lack of TR jet. * No tricuspid stenosis. * Normal tricuspid valve structure. Pulmonic Valve * Trace pulmonic regurgitation. Aorta * Normally sized aortic root. Pericardium * The pericardium appears normal. IVC * The IVC is not well evaluated. Pulmonary Artery * Pulmonary artery not well visualized. - Attending Attestation I have personally performed a face to face evaluation on this patient. I have reviewed and agree with the care plan. History and Exam by me shows: Patient seen complaining of bleeding per rectum dark red in color. Examination: Abdomen is benign. Assessment: Patient with history of rectal cancer status post resection now with lower GI bleed. Does has a history of upper GI bleed last year and ended up at [facility]. Currently hemoglobin has been stable. #2 hyperkalemia. Recommendation: Follow H&H, treatment of hyperkalemia per primary team. Anesthesia will not do her procedure as potassium is too high. We will do EGD in the morning and if unremarkable then she will need a colonoscopy
--- NOTE | 2018-11-08 16:53 | Event Note ---
Date of Encounter: 11/08/18 Time of Encounter: 16:52 - Nephrology Event Note Nephrology chart update After finishing my clinic, I happen find this patient on my list, but I had not received any notification. I see that the hyperkalemia is trending better. Avoid lactated Ringer's or other agents that could potentiate hyperkalemia. Full consult to follow tomorrow. Thank you
[2018-11-08 17:58] LABS: Hematocrit 27.9 % (35.3-44.9); Hemoglobin 8.6 g/dL (11.5-15.4); Mean Corpuscular HGB Conc 30.8 g/dL (31.6-35.5); Mean Corpuscular Hemoglobin 28.3 pg (28.0-33.3); Mean Corpuscular Volume 91.8 fL (83.0-100.0); Mean Platelet Volume 11.2 fL (9.4-12.4); Platelet Count 324 K/mcL (140-400); Red Blood Count 3.04 M/mcL (3.82-4.97); Red Cell Distribution Width 17.2 % (11.5-14.5)
[2018-11-08] MEDS: traMADol 50 MG TABLET PO PRN (21:41)
[2018-11-08] MEDS: Insulin DETEMIR 100 UNIT/ML X5UNITS SQ SCH (21:41)
[2018-11-09] MEDS: Insulin LISPRO 300 UNITS/3 ML VIAL SQ SCH ×5 (00:35→22:48)
[2018-11-09] MEDS: 0.9 % Sodium Chloride 1,000 ML IVC SCH ×3 (02:23→17:19)
[2018-11-09 05:40] LABS: Hematocrit 22.8 % (35.3-44.9); Red Blood Count 2.43 M/mcL (3.82-4.97)
[2018-11-09 05:41] LABS: Basophils # 0.1 K/mcL (0.0-0.2); Basophils % 1.1 %; Eosinophils % 0.7 %; Immature Granulocytes % 0.4 % (0-4); Lymphocytes # 1.9 K/mcL (0.6-4.6); Lymphocytes % 33.5 %; Mean Corpuscular HGB Conc 30.3 g/dL (31.6-35.5); Mean Corpuscular Hemoglobin 28.4 pg (28.0-33.3); Mean Corpuscular Volume 93.8 fL (83.0-100.0); Mean Platelet Volume 11.8 fL (9.4-12.4); Monocytes # 0.5 K/mcL (0.0-1.3); Monocytes % 8.3 %; Neutrophils # 3.2 K/mcL (1.6-8.9); Platelet Count 268 K/mcL (140-400); Red Cell Distribution Width 17.3 % (11.5-14.5)
[2018-11-09 05:42] LABS: Hemoglobin 6.9 g/dL (11.5-15.4)
[2018-11-09 06:04] LABS: BUN/Creatinine Ratio 42 (6-26); Blood Urea Nitrogen 37 mg/dL (8-23); Calcium 8.2 mg/dL (8.6-10.3); Carbon Dioxide 22 mEq/L (23-29); Chloride 116 mEq/L (98-107); Glucose 108 mg/dL (70-105); Magnesium 1.8 mg/dL (1.6-2.6); Osmolality,Calculated 303 (280-300); Phosphorous 3.2 mg/dL (2.7-4.5); Potassium 4.9 mEq/L (3.5-5.1); Sodium 142 mEq/L (136-145); eGFR For Non-African Americans > 60 (> 60)
[2018-11-09] MEDS: Pantoprazole 40 MG VIAL IVP SCH (06:36)
--- NOTE | 2018-11-09 07:50 | Nephrology Consult Note ---
Date of Encounter: 11/09/18 Time of Encounter: 09:15 Assessment and Plan (1) Hyperkalemia Current Visit: Yes Status: Acute Improved to 4.9 Recommend avoiding Rx that could potentiate hyperkalemia. Given that she has no active PAXTON and her GFR is >60 and now has a normal serum K+, nephrology is not needed, so I will sign-off. If any questions on basic electrolyte management, I would be happy to help. Thank you. (2) Acute blood loss anemia Current Visit: Yes Status: Acute As per primary. History of Present Illness - Reason for Consult Consult date: 11/09/18 hyperkalemia Requesting physician: Ehsan Daigle - Chief Complaint Elevated K+ - History of Present Illness The pt is a 68 y/o obese WF who was found to have an elevated serum K+. Nephrology was consulted, but her serum K+ has already improved to WNL. She denied taking NSAIDs. She denied taking OTC or surreptitious KCl. She did not affirm N/V, F/C, dysuria, CP, but she has had some prior UTIs and prior AKIs. She said she has not seen a forest practices field coordinator in the past. Family History: no 1st degree relatives with ESRD to her knowledge. Past Med Surg Social Fam HX - Past Medical History Medical history: cancer, CVA, diabetes, GERD, hyperlipidemia, hypertension Additional medical history: right side weakness CVA. rectal CA and cervical CA with chemo and radiation Psychiatric history: anxiety, depression, prior suicide attempt, schizophrenia - Past Surgical History Surgical History: cancer surgery, colectomy, other Additional surgical history: colon cancer. gastric bypass - Social History Smoking Status: Former smoker Smokeless Tobacco Status: No Alcohol use: occasionally Drug use: none - Family History Mother Living Status: Hx Family Cardiac Disorders: Yes (father heart attacks) Hx Family Respiratory Disorders: Yes (dad unknown, smoker) Hx Family Cancer: Yes (mother, utreus) Hx Family GI Disorders: No Hx Family Endocrine Disorder: Yes (mother DM) Hx Family Neuromuscular Disorders: No Hx Family Neurologic Disorders: No Hx Family HEENT Disorders: No Hx Family Autoimmune Disorders: No Medications and Allergies Albuterol Sulfate [Ventolin Hfa] 2 gm IH Q6H PRN 07/28/18 [History] Buspirone HCl [Buspar] 10 mg PO QAM 07/28/18 [History] Insulin ASPART [Novolog Flexpen] 2 - 10 unit SQ QID 07/28/18 [History] Simvastatin [Zocor] 40 mg PO DAILY 07/28/18 [History] Tizanidine HCl [Zanaflex] 4 mg PO HS 07/28/18 [History] Trazodone HCl 100 mg PO HS 07/28/18 [History] Aspirin 81 mg PO DAILY 09/19/18 [History] Acetaminophen [Extra Strength Non-Aspirin] 1,000 mg PO Q4H PRN 11/07/18 [History] Insulin DETEMIR [Levemir] 48 units SQ DAILY 11/07/18 [History] Insulin DETEMIR [Levemir] 60 units SQ HS 11/07/18 [History] Lisinopril [Zestril] 10 mg PO DAILY 11/07/18 [History] Allergy/AdvReac Type Severity Reaction Status Date / Time Amoxicillin [From Augmentin] Allergy See Verified 11/07/18 13:03 Comments clavulanic acid Allergy See Verified 11/07/18 13:03 [From Augmentin] Comments nitrofurantoin Allergy unknown Verified 11/07/18 13:03 sertraline [From Zoloft] Allergy unknown Verified 11/07/18 13:03 shellfish derived Allergy Anaphylaxis Verified 11/07/18 13:03 Sulfa (Sulfonamide Allergy Hives Verified 11/07/18 13:03 Antibiotics) meperidine [From Demerol] AdvReac Headache Verified 11/07/18 13:03 Review of Systems All Systems: reviewed and no additional remarkable complaints except as stated Exam - Vital Signs Vital signs: Initial Vital Signs Temp Pulse Resp BP Pulse Ox 98.2 F 86 18 123/57 100 11/07/18 12:48 11/07/18 12:48 11/07/18 12:48 11/07/18 12:48 11/07/18 12:48 Vital Signs - Last 8 Hours Temp Pulse Resp BP Pulse Ox 11/09/18 05:22 99.1 F 80 15 147/69 96 Intake and Output 11/08/18 11/08/18 11/09/18 15:59 23:59 07:59 Intake Total 360.1 / 360.1 1000 / 1000 0 / 0 Output Total 400 / 400 Balance 360.1 / 360.1 600 / 600 0 / 0 Intake: IV Fluids 10.1 / 10.1 1000 / 1000 HumuLIN R 10 UNIT In Normal 10.1 / 10.1 Saline Flush 10 ML @ 1212 mls/ hr IV ONCE ONE Rx#:[id number] 0.9 % Sodium Chloride 1,000 ML 1000 / 1000 @ 100 mls/hr IVC .Q10H [facility] Rx#: [id number] Oral 0 / 0 0 / 0 Blood Product 350 / 350 Rbcs Leuko Poor As-1 Unit 350 / 350 [id number] Output: Urine 400 / 400 Other: Stool Size Large Stool Consistency soft Stool Color Black Bright Red Blood Dark Red Blood # Voids 1 1 # Bowel Movements 1 Weight 137.6 kg Blood Glucose* 395 188 109 Patient Weight 11/09/18 23:59 Weight 137.6 kg - General Appearance General appearance: well-developed, well-nourished, appears started age, obese EENT: ATNC, PERRL, mucous membranes moist Neck: supple Respiratory: clear Cardiology: no edema, normal S1, normal S2 Gastrointestinal: normoactive bowel sounds, no tenderness Integumentary: warm and dry Neurologic: alert and oriented x3 Musculoskeletal: no erythema, no cyanosis, no clubbing Psychiatric: mood/affect appropriate, cooperative Results - Lab Results 11/09/18 05:17 11/09/18 05:17 Most recent lab results Calcium 8.2 mg/dL (8.6-10.3) L 11/09/18 05:17 Phosphorus 3.2 mg/dL (2.7-4.5) 11/09/18 05:17 Magnesium 1.8 mg/dL (1.6-2.6) 11/09/18 05:17 Consult Discharge Plan - Plan Referrals: Nathaly Segovia MD [Partnered Physician] - 11/24/18 9:55 am NONE,PCP [Primary Care Provider] -
--- NOTE | 2018-11-09 09:22 | Internal Med Progress Note ---
Hospitalist Progress Note - Encounter Date of Encounter: 11/09/18 Time of Encounter: 09:20 - Subjective Interval History: Patient was seen and examined. Admitted for symptomatic anemia. Plan was to undergo elective laparoscopic cholecystectomy but while undergoing anesthesia the patient became hypotensive. Was found to have a low hemoglobin of 6.9 and admitted to the hospitalist service. Was transfused and hemoglobin is again at 6.9 this morning. She is being transfused again. GI is following as well with the plans for an EGD today. Surgery will see the patient is in the outpatient setting once her acute issues are resolved. While here was noted to have hyperkalemic candidate multiple treatments. Her potassium is 4.9 this morning. Nephrology is following. - Exam Vitals: Temp Pulse Resp BP Pulse Ox 97.8 F 80 16 125/77 98 11/09/18 08:29 11/09/18 08:29 11/09/18 08:29 11/09/18 08:29 11/09/18 08:29 Exam: GEN: NAD CVS: RRR. S1, S2, No m/r/g RESP: CTAB ABD: Soft, NT, ND, +BS EXT: No edema. 2+ DP. No rashes NEURO: Nonfocal - Assessment and Plan (1) Acute blood loss anemia Current Visit: Yes Status: Acute Assessment and Plan: 1 unit PRBCs ordered. EGD today. Pressure stable at 125/77. Hold home aspirin. (2) Diabetes Current Visit: Yes Status: Acute Assessment and Plan: Insulin sliding scale. Accu-Cheks. (3) Hyperkalemia Current Visit: Yes Status: Acute Assessment and Plan: Potassium is 4.9 this morning. Has needed multiple treatments while here. (4) Symptomatic cholelithiasis Current Visit: Yes Status: Chronic Assessment and Plan: We will need to follow-up with surgery in the outpatient setting once acute issues are resolved here. (5) Morbid obesity Current Visit: Yes Status: Acute Assessment and Plan: Counseled (6) DVT prophylaxis Current Visit: Yes Status: Acute Assessment and Plan: SCDs - Time Spent with Patient Total time spent is greater than 50% in coordination of care (as documented) at patient's floor/unit and/or counseling patient: Internal Medicine: Result - Labs CBC & Chem 7: 11/09/18 05:17 11/09/18 05:17 Labs: Short CBC 11/08/18 11/09/18 Range/Units 17:46 05:17 WBC 7.4 5.7 (4.3-11.1) K/mcL Hgb 8.6 L 6.9 L D (11.5-15.4) g/dL Hct 27.9 L 22.8 L (35.3-44.9) % Plt Count 324 268 (140-400) K/mcL Neutrophils # 3.2 (1.6-8.9) K/mcL BMP 11/08/18 11/08/18 11/08/18 10:38 13:05 17:46 Sodium Potassium 6.5 H* 5.8 H 5.5 H Chloride Carbon Dioxide BUN Creatinine Glucose Calcium 11/09/18 11/09/18 01:43 05:17 Sodium 142 Potassium 5.3 H 4.9 Chloride 116 H Carbon Dioxide 22 L BUN 37 H Creatinine 0.89 Glucose 108 H Calcium 8.2 L - ABG Interpretation ABG results: PT/INR, D-dimer PT 11.7 Seconds (9.4-12.1) 11/08/18 04:14 Consult Discharge Plan - Plan Referrals: Nathaly Segovia MD [Partnered Physician] - 11/24/18 9:55 am NONE,PCP [Primary Care Provider] - __ (2) Diabetes Qualifiers: Diabetes mellitus type: type 2 Diabetes mellitus chcf insulin use: with chcf use Diabetes mellitus complication status: without complication Qualified Code(s): E11.9 - Type 2 diabetes mellitus without complications; 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
[2018-11-09] MEDS ORDERED: *HR* Propofol 200 MG/20 ML VIAL IVP ONE (12:02)
[2018-11-09] MEDS ORDERED: *HR* PHENYLEPHRINE 1,000 MCG/10 ML SYRINGE IVP ONE (12:20)
[2018-11-09] MEDS ORDERED: Propofol 500 MG/50 ML INFUS..BTL ONE (12:20)
--- NOTE | 2018-11-09 12:50 | Anesthesia Evaluation PreOp ---
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[employer] History: CVA (left sided weakness) Other Medical History: Renal (CKD), Diabetes Type II, GERD, Other (MO) Anesthesia History: No Prior Anesthetic Complications Alcohol Use: occasionally Drug use: none Medications and Allergies Albuterol Sulfate [Ventolin Hfa] 2 gm IH Q6H PRN 07/28/18 [History] Buspirone HCl [Buspar] 10 mg PO QAM 07/28/18 [History] Insulin ASPART [Novolog Flexpen] 2 - 10 unit SQ QID 07/28/18 [History] Simvastatin [Zocor] 40 mg PO DAILY 07/28/18 [History] Tizanidine HCl [Zanaflex] 4 mg PO HS 07/28/18 [History] Trazodone HCl 100 mg PO HS 07/28/18 [History] Aspirin 81 mg PO DAILY 09/19/18 [History] Acetaminophen [Extra Strength Non-Aspirin] 1,000 mg PO Q4H PRN 11/07/18 [History] Insulin DETEMIR [Levemir] 48 units SQ DAILY 11/07/18 [History] Insulin DETEMIR [Levemir] 60 units SQ HS 11/07/18 [History] Lisinopril [Zestril] 10 mg PO DAILY 11/07/18 [History] Allergy/AdvReac Type Severity Reaction Status Date / Time Amoxicillin [From Augmentin] Allergy See Verified 11/07/18 13:03 Comments clavulanic acid Allergy See Verified 11/07/18 13:03 [From Augmentin] Comments nitrofurantoin Allergy unknown Verified 11/07/18 13:03 sertraline [From Zoloft] Allergy unknown Verified 11/07/18 13:03 shellfish derived Allergy Anaphylaxis Verified 11/07/18 13:03 Sulfa (Sulfonamide Allergy Hives Verified 11/07/18 13:03 Antibiotics) meperidine [From Demerol] AdvReac Headache Verified 11/07/18 13:03 - Meds/Allergy Pre-op Review Medications Reviewed: Yes Allergies Reviewed: Yes Beta Blockers on Current Med List: No Anesthesia Results - Labs 11/09/18 05:17 11/09/18 05:17 - Imaging EKG: report reviewed (SR) Additional studies: ECHO EF 60% Anesthesia Exam O2 Sat Weight 137.6 kg O2 Sat by Pulse Oximetry 99 O2 Sat by Pulse Oximetry 98 O2 Sat by Pulse Oximetry 96 O2 Sat by Pulse Oximetry 95 O2 Sat by Pulse Oximetry 96 O2 Sat by Pulse Oximetry 99 Vital Signs Temp Pulse Resp BP Pulse Ox 98.2 F 86 18 123/57 100 11/07/18 12:48 11/07/18 12:48 11/07/18 12:48 11/07/18 12:48 11/07/18 12:48 Height: 5'7 Weight: 303 lbs NPO (# of Hours): MN Pain Scale: 0 - HEENT Pupil (Motor): Pupils equal, EOMI Mallampati: III Teeth: Edentulous Oral Opening: Less than or equal to 3 - 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
[2018-11-09] MEDS ORDERED: *HR* EPINEPHrine 1 MG/10 ML SYRINGE ONE (13:17)
[2018-11-09] MEDS ORDERED: *HR* EPINEPHrine 1 MG/10 ML SYRINGE INTRATRACH PRN (13:28)
[2018-11-09] MEDS ORDERED: 0.9 % Sodium Chloride 250 ML ONE (14:37)
--- NOTE | 2018-11-09 14:45 | Anesthesia Evaluation Post Op ---
Date of Encounter: 11/09/18 Time of Encounter: 14:00 - Vital Signs Vital Signs: Vital Signs/O2 Sat/Glucose, Most Current Temp Pulse Resp BP Pulse Ox 11/09/18 13:55 99 F 85 17 135/73 95 11/09/18 12:42 98.4 F 83 16 136/63 99 - Lungs Lungs: Clear Ascult./Percussion - Airway Airway: Non-obstructed - Cardiovascular Regular Rate - Mental Status Mental Status: Alert & Oriented, Answers Appropriately - Pain Pain Scale: 0 - Nausea Vomiting Nausea Vomiting: Not Present - Hydration Hydration: Tolerates oral liquids, Has not voided - Discharge PostOp Status: Transfer Patient to floor
[2018-11-09] MEDS: Pantoprazole 40 MG in 0.9 % Sodium Chloride Mini Bag 100 ML IVC SCH ×2 (15:08→22:41)
--- NOTE | 2018-11-09 17:56 | Electrocardiograph Report ---
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
[2018-11-09] MEDS: Insulin DETEMIR 100 UNIT/ML X5UNITS SQ SCH (20:14)
[2018-11-09] MEDS: traMADol 50 MG TABLET PO PRN (22:42)
[2018-11-10] MEDS: Pantoprazole 40 MG in 0.9 % Sodium Chloride Mini Bag 100 ML IVC SCH ×5 (04:19→20:47)
[2018-11-10 04:51] LABS: Basophils # 0.1 K/mcL (0.0-0.2); Basophils % 0.9 %; Eosinophils # 0.1 K/mcL (0.0-0.6); Eosinophils % 1.6 %; Hematocrit 25.8 % (35.3-44.9); Hemoglobin 7.9 g/dL (11.5-15.4); Immature Granulocytes % 0.2 % (0-4); Lymphocytes # 2.4 K/mcL (0.6-4.6); Lymphocytes % 29.4 %; Mean Corpuscular HGB Conc 30.6 g/dL (31.6-35.5); Mean Corpuscular Hemoglobin 28.4 pg (28.0-33.3); Mean Corpuscular Volume 92.8 fL (83.0-100.0); Mean Platelet Volume 11.5 fL (9.4-12.4); Monocytes # 0.6 K/mcL (0.0-1.3); Neutrophils # 4.9 K/mcL (1.6-8.9); Platelet Count 252 K/mcL (140-400); Red Blood Count 2.78 M/mcL (3.82-4.97); Red Cell Distribution Width 16.5 % (11.5-14.5); Segmented Neutrophils % 60.9 %
[2018-11-10 05:12] LABS: BUN/Creatinine Ratio 36 (6-26); Blood Urea Nitrogen 25 mg/dL (8-23); Calcium 8.1 mg/dL (8.6-10.3); Carbon Dioxide 22 mEq/L (23-29); Chloride 117 mEq/L (98-107); Glucose 48 mg/dL (70-105); Magnesium 1.5 mg/dL (1.6-2.6); Osmolality,Calculated 302 (280-300); Phosphorous 3.3 mg/dL (2.7-4.5); Potassium 3.8 mEq/L (3.5-5.1); Sodium 145 mEq/L (136-145); eGFR For Non-African Americans > 60 (> 60)
[2018-11-10] MEDS: 0.9 % Sodium Chloride 1,000 ML IVC SCH (05:46)
[2018-11-10] MEDS: Insulin LISPRO 300 UNITS/3 ML VIAL SQ SCH ×4 (06:11→20:44)
--- NOTE | 2018-11-10 09:31 | Internal Med Progress Note ---
Hospitalist Progress Note - Encounter Date of Encounter: 11/10/18 Time of Encounter: 09:28 - Subjective Interval History: Patient was seen and examined. feels well. Hgb at 7.9. Had an EGD yesterday and an oozing ulcer was injected at the site of gastric anastamosis. Was transfused post EGD as well as before it. Admitted for symptomatic anemia. Plan was to undergo elective laparoscopic cholecystectomy but while undergoing anesthesia the patient became hypotensive. Was found to have a low hemoglobin of 6.9 and admitted to the hospitalist service. Surgery will see the patient is in the outpatient setting once her acute issues are resolved. While here was noted to have hyperkalemic candidate multiple treatments. This has resolved. - Exam Vitals: Temp Pulse Resp BP Pulse Ox 97.7 F 78 18 115/72 99 11/10/18 08:00 11/10/18 08:00 11/10/18 08:00 11/10/18 08:00 11/10/18 08:00 Exam: GEN: NAD CVS: RRR. S1, S2, No m/r/g RESP: CTAB ABD: Soft, NT, ND, +BS EXT: No edema. 2+ DP. No rashes NEURO: Nonfocal - Assessment and Plan (1) Acute blood loss anemia Current Visit: Yes Status: Acute Assessment and Plan: Transfused a total of 2 units yesterday and 3 since admission. Hgb still at 7.9. Had EGD done and an oozing ulcer at gastric anastamosis site was injeced. Will monitor H/H. c/w IV PPI for 3 days per GI. (2) Diabetes Current Visit: Yes Status: Acute Assessment and Plan: Insulin sliding scale. Accu-Cheks. (3) Hyperkalemia Current Visit: Yes Status: Acute Assessment and Plan: Resolved. (4) Symptomatic cholelithiasis Current Visit: Yes Status: Chronic Assessment and Plan: We will need to follow-up with surgery in the outpatient setting once acute issues are resolved here. (5) Morbid obesity Current Visit: Yes Status: Acute Assessment and Plan: Counseled (6) DVT prophylaxis Current Visit: Yes Status: Acute Assessment and Plan: SCDs - Time Spent with Patient Total time spent is greater than 50% in coordination of care (as documented) at patient's floor/unit and/or counseling patient: Internal Medicine: Result - Labs CBC & Chem 7: 11/10/18 04:30 11/10/18 04:30 Labs: Short CBC 11/10/18 Range/Units 04:30 WBC 8.1 (4.3-11.1) K/mcL Hgb 7.9 L (11.5-15.4) g/dL Hct 25.8 L (35.3-44.9) % Plt Count 252 (140-400) K/mcL Neutrophils # 4.9 (1.6-8.9) K/mcL BMP 11/10/18 04:30 Sodium 145 Potassium 3.8 Chloride 117 H Carbon Dioxide 22 L BUN 25 H Creatinine 0.70 Glucose 48 L Calcium 8.1 L - ABG Interpretation ABG results: PT/INR, D-dimer PT 11.7 Seconds (9.4-12.1) 11/08/18 04:14 Consult Discharge Plan - Plan Referrals: Nathaly Segovia MD [Partnered Physician] - 11/24/18 9:55 am NONE,PCP [Primary Care Provider] - (2) Diabetes Qualifiers: Diabetes mellitus type: type 2 Diabetes mellitus alf insulin use: with alf use Diabetes mellitus complication status: without complication Qualified Code(s): E11.9 - Type 2 diabetes mellitus without complications; 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
[2018-11-10] MEDS: traMADol 50 MG TABLET PO PRN (17:23)
[2018-11-10] MEDS: traZODone 50 MG TABLET PO SCH (20:47)
[2018-11-10] MEDS: tiZANidine 4 MG TABLET PO SCH (20:47)
[2018-11-10] MEDS ORDERED: Insulin DETEMIR 100 UNIT/ML X5UNITS SQ SCH (21:00)
[2018-11-11] MEDS: Pantoprazole 40 MG in 0.9 % Sodium Chloride Mini Bag 100 ML IVC SCH (02:41)
[2018-11-11 03:27] LABS: Basophils # 0.1 K/mcL (0.0-0.2); Basophils % 1.2 %; Eosinophils # 0.2 K/mcL (0.0-0.6); Eosinophils % 3.2 %; Hematocrit 26.1 % (35.3-44.9); Hemoglobin 7.9 g/dL (11.5-15.4); Immature Granulocytes % 0.2 % (0-4); Lymphocytes # 1.6 K/mcL (0.6-4.6); Mean Corpuscular HGB Conc 30.3 g/dL (31.6-35.5); Mean Corpuscular Hemoglobin 28.4 pg (28.0-33.3); Mean Corpuscular Volume 93.9 fL (83.0-100.0); Mean Platelet Volume 11.2 fL (9.4-12.4); Monocytes # 0.4 K/mcL (0.0-1.3); Monocytes % 8.7 %; Neutrophils # 2.8 K/mcL (1.6-8.9); Platelet Count 221 K/mcL (140-400); Red Blood Count 2.78 M/mcL (3.82-4.97); Segmented Neutrophils % 55.7 %
[2018-11-11 03:30] LABS: BUN/Creatinine Ratio 22 (6-26); Blood Urea Nitrogen 16 mg/dL (8-23); Carbon Dioxide 24 mEq/L (23-29); Chloride 113 mEq/L (98-107); Glucose 62 mg/dL (70-105); Magnesium 1.4 mg/dL (1.6-2.6); Osmolality,Calculated 299 (280-300); Phosphorous 3.8 mg/dL (2.7-4.5); Potassium 3.5 mEq/L (3.5-5.1); Sodium 145 mEq/L (136-145); eGFR For Non-African Americans > 60 (> 60)
[2018-11-11] MEDS: Insulin LISPRO 300 UNITS/3 ML VIAL SQ SCH ×4 (09:01→20:38)
[2018-11-11] MEDS: BUSPIRONE HCL 10 MG TABLET PO SCH (09:01)
--- NOTE | 2018-11-11 09:50 | Internal Med Progress Note ---
Hospitalist Progress Note - Encounter Date of Encounter: 11/11/18 Time of Encounter: 09:48 - Subjective Interval History: Patient sitting comfortably on bed watching TV. No bowel movement overnight but had to 3 bowel movement yesterday with black stool. Review the lab with a stable hemoglobin 7.9 low magnesium 1.5. Started on PPI drip. Patient is clear liquid diet. Denies nausea vomiting fever chills chest pain short of breath headache dizziness abdominal pain urinary bowel complaint. - Exam Vitals: Temp Pulse Resp BP Pulse Ox 98.0 F 75 16 130/69 97 11/11/18 04:28 11/11/18 04:28 11/11/18 04:28 11/11/18 04:28 11/11/18 04:28 Exam: GEN: NAD CVS: RRR. S1, S2, No m/r/g RESP: CTAB with no wheezing or crackles ABD: Soft, NT, ND, +BS EXT: No edema. 2+ DP. No rashes NEURO: Alert awake oriented, no focal neurological deficit. Normal gait. - Assessment and Plan (1) Acute blood loss anemia Current Visit: Yes Status: Acute Assessment and Plan: Transfused a total of 3 units since admission. Hgb still at 7.9. No active bleeding at this time but had black stool twice yesterday. Tolerating clear liquid diet. Had EGD done and an oozing ulcer at gastric anastamosis site was injeced. Continue PPI drip for now and will change to IV PPI twice a day and further advancement in diet as per GI recommendation. Patient denies any cardio vascular history in the past. Discharge plan as per GI advice (2) Diabetes Current Visit: Yes Status: Acute Assessment and Plan: Blood glucose level running low therefore decrease insulin Levemir 10 units in the night. Continue Accu-Chek. Will restart diabetic diet when able to eat. (3) Morbid obesity Current Visit: Yes Status: Acute Assessment and Plan: Counseled about healthy diet and lifestyle (4) Symptomatic cholelithiasis Current Visit: Yes Status: Chronic Assessment and Plan: We will need to follow-up with surgery in the outpatient setting once acute issues are resolved here. (5) Hyperkalemia Current Visit: Yes Status: Acute Assessment and Plan: Resolved. (6) DVT prophylaxis Current Visit: Yes Status: Acute Assessment and Plan: SCDs (7) Hypomagnesemia Current Visit: Yes Status: Acute Assessment and Plan: Replacement and monitor. (8) H/O malignant neoplasm of rectum Current Visit: Yes Status: Acute Assessment and Plan: Stable. - Time Spent with Patient Total time spent is greater than 50% in coordination of care (as documented) at patient's floor/unit and/or counseling patient: 25 - 35 minutes Plan of Care Discussed with: patient Internal Medicine: Result - Labs CBC & Chem 7: 11/11/18 03:00 11/11/18 03:00 Labs: Short CBC 11/11/18 Range/Units 03:00 WBC 5.0 (4.3-11.1) K/mcL Hgb 7.9 L (11.5-15.4) g/dL Hct 26.1 L (35.3-44.9) % Plt Count 221 (140-400) K/mcL Neutrophils # 2.8 (1.6-8.9) K/mcL BMP 11/11/18 03:00 Sodium 145 Potassium 3.5 Chloride 113 H Carbon Dioxide 24 BUN 16 Creatinine 0.72 Glucose 62 L Calcium 8.0 L - ABG Interpretation ABG results: PT/INR, D-dimer PT 11.7 Seconds (9.4-12.1) 11/08/18 04:14 Consult Discharge Plan - Plan Referrals: Nathaly Segovia MD [Partnered Physician] - 11/24/18 9:55 am NONE,PCP [Primary Care Provider] - (2) Diabetes Qualifiers: Diabetes mellitus type: type 2 Diabetes mellitus mcc insulin use: with mcc use Diabetes mellitus complication status: without complication Qualified Code(s): E11.9 - Type 2 diabetes mellitus without complications; 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
[2018-11-11 12:06] LABS: Basophils % 0.7 %; Eosinophils # 0.1 K/mcL (0.0-0.6); Eosinophils % 1.5 %; Hematocrit 27.6 % (35.3-44.9); Hemoglobin 8.2 g/dL (11.5-15.4); Immature Granulocytes % 0.2 % (0-4); Lymphocytes # 1.1 K/mcL (0.6-4.6); Lymphocytes % 19.3 %; Mean Corpuscular HGB Conc 29.7 g/dL (31.6-35.5); Mean Corpuscular Hemoglobin 28.9 pg (28.0-33.3); Mean Corpuscular Volume 97.2 fL (83.0-100.0); Mean Platelet Volume 11.5 fL (9.4-12.4); Monocytes # 0.4 K/mcL (0.0-1.3); Monocytes % 6.9 %; Neutrophils # 4.2 K/mcL (1.6-8.9); Platelet Count 219 K/mcL (140-400); Red Blood Count 2.84 M/mcL (3.82-4.97); Segmented Neutrophils % 71.4 %
[2018-11-11] MEDS ORDERED: Magnesium Oxide 400 MG TABLET PO ONE (15:58)
[2018-11-11] MEDS: Pantoprazole 40 MG VIAL IVP SCH (17:21)
[2018-11-11] MEDS: traMADol 50 MG TABLET PO PRN (17:21)
[2018-11-11] MEDS: Insulin DETEMIR 100 UNIT/ML X5UNITS SQ SCH (20:38)
[2018-11-11] MEDS: traZODone 50 MG TABLET PO SCH (20:38)
[2018-11-11] MEDS: tiZANidine 4 MG TABLET PO SCH (20:38)
[2018-11-12] MEDS: Pantoprazole 40 MG VIAL IVP SCH ×2 (05:08→17:04)
[2018-11-12 05:16] LABS: Basophils # 0.1 K/mcL (0.0-0.2); Basophils % 1.2 %; Eosinophils # 0.1 K/mcL (0.0-0.6); Eosinophils % 3.1 %; Hematocrit 26.2 % (35.3-44.9); Hemoglobin 8.2 g/dL (11.5-15.4); Immature Granulocytes % 0.2 % (0-4); Lymphocytes # 1.1 K/mcL (0.6-4.6); Lymphocytes % 26.4 %; Mean Corpuscular HGB Conc 31.3 g/dL (31.6-35.5); Mean Corpuscular Hemoglobin 29.1 pg (28.0-33.3); Mean Corpuscular Volume 92.9 fL (83.0-100.0); Mean Platelet Volume 11.3 fL (9.4-12.4); Monocytes # 0.4 K/mcL (0.0-1.3); Monocytes % 8.7 %; Neutrophils # 2.6 K/mcL (1.6-8.9); Platelet Count 210 K/mcL (140-400); Red Blood Count 2.82 M/mcL (3.82-4.97); Red Cell Distribution Width 15.9 % (11.5-14.5); Segmented Neutrophils % 60.4 %
[2018-11-12 05:34] LABS: BUN/Creatinine Ratio 15 (6-26); Blood Urea Nitrogen 11 mg/dL (8-23); Calcium 8.2 mg/dL (8.6-10.3); Carbon Dioxide 25 mEq/L (23-29); Chloride 112 mEq/L (98-107); Glucose 96 mg/dL (70-105); Magnesium 1.7 mg/dL (1.6-2.6); Osmolality,Calculated 293 (280-300); Phosphorous 3.3 mg/dL (2.7-4.5); Potassium 3.7 mEq/L (3.5-5.1); Sodium 142 mEq/L (136-145); eGFR For Non-African Americans > 60 (> 60)
[2018-11-12] MEDS: Insulin LISPRO 300 UNITS/3 ML VIAL SQ SCH ×4 (09:12→21:20)
[2018-11-12] MEDS: BUSPIRONE HCL 10 MG TABLET PO SCH (09:16)
--- NOTE | 2018-11-12 10:52 | Internal Med Progress Note ---
Hospitalist Progress Note - Encounter Date of Encounter: 11/12/18 Time of Encounter: 10:49 - Subjective Interval History: Patient tolerating liquid diet and want to eat something solid. Patient had one bowel movement with black stool but no fresh red. Patient has been having black stool however since admission. Review the lab with trending up hemoglobin. PPI drip was just stopped yesterday evening Denies fever chills nausea vomiting headache dizziness chest pain shortness of breath cough abdominal pain urinary complaint or diarrhea. - Exam Vitals: Temp Pulse Resp BP Pulse Ox 98.5 F 97 16 150/79 94 11/12/18 07:43 11/12/18 07:43 11/12/18 07:43 11/12/18 07:43 11/12/18 07:43 Exam: GEN: NAD, morbidly obese CVS: RRR. S1, S2, No m/r/g RESP: CTAB , dizziness breast sound most likely due to body habitus ABD: Soft, NT, ND, +BS EXT: No edema. 2+ DP. No rashes NEURO: Alert awake oriented, no focal neurological deficit. - Assessment and Plan (1) Acute blood loss anemia Current Visit: Yes Status: Acute Assessment and Plan: Transfused a total of 3 units since admission. Trending up hemoglobin 8.2 today. No active bleeding at this time but still has black stool that could be been old blood in the GI system. Patient is tolerating clear liquid diet and trending of hemoglobin therefore I will advance to soft diet today while monitoring hemoglobin or further bleeding. PPI drip was stopped on 2018. Continue IV PPI twice a day today and will plan to switch oral tomorrow the patient continued to improve no further active bleeding. Patient denies any cardio vascular history in the past. Plan to discharge patient in 1 or 2 days after getting clearance from GI (2) Diabetes Current Visit: Yes Status: Acute Assessment and Plan: Blood glucose level running low therefore decreaseD insulin Levemir 10 units in the night. Now better blood glucose level. Continue Accu-Chek. Will restart diabetic diet when able to eat. (3) Morbid obesity Current Visit: Yes Status: Acute Assessment and Plan: Counseled about healthy diet and lifestyle (4) Symptomatic cholelithiasis Current Visit: Yes Status: Chronic Assessment and Plan: will need to follow-up with surgery in the outpatient setting once acute issues are resolved here. (5) Hyperkalemia Current Visit: Yes Status: Acute Assessment and Plan: Resolved. (6) DVT prophylaxis Current Visit: Yes Status: Acute Assessment and Plan: SCDs (7) Hypomagnesemia Current Visit: Yes Status: Acute (8) H/O malignant neoplasm of rectum Current Visit: Yes Status: Acute - Time Spent with Patient Total time spent is greater than 50% in coordination of care (as documented) at patient's floor/unit and/or counseling patient: 25 - 35 minutes Plan of Care Discussed with: patient Internal Medicine: Result - Labs CBC & Chem 7: 11/12/18 04:50 11/12/18 04:50 Labs: Short CBC 11/11/18 11/12/18 Range/Units 11:15 04:50 WBC 5.9 4.3 (4.3-11.1) K/mcL Hgb 8.2 L 8.2 L (11.5-15.4) g/dL Hct 27.6 L 26.2 L (35.3-44.9) % Plt Count 219 210 (140-400) K/mcL Neutrophils # 4.2 2.6 (1.6-8.9) K/mcL BMP 11/12/18 04:50 Sodium 142 Potassium 3.7 Chloride 112 H Carbon Dioxide 25 BUN 11 Creatinine 0.75 Glucose 96 Calcium 8.2 L - ABG Interpretation ABG results: PT/INR, D-dimer PT 11.7 Seconds (9.4-12.1) 11/08/18 04:14 Consult Discharge Plan - Plan Referrals: Nathaly Segovia MD [Partnered Physician] - 11/24/18 9:55 am NONE,PCP [Primary Care Provider] - (2) Diabetes Qualifiers: Diabetes mellitus type: type 2 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
[2018-11-12] MEDS: Insulin DETEMIR 100 UNIT/ML X5UNITS SQ SCH (21:29)
[2018-11-12] MEDS: tiZANidine 4 MG TABLET PO SCH (21:29)
[2018-11-12] MEDS: traZODone 50 MG TABLET PO SCH (21:29)
[2018-11-13] MEDS: Pantoprazole 40 MG VIAL IVP SCH (05:57)
[2018-11-13] MEDS: Insulin LISPRO 300 UNITS/3 ML VIAL SQ SCH ×4 (08:28→21:29)
[2018-11-13] MEDS: traMADol 50 MG TABLET PO PRN (10:10)
[2018-11-13] MEDS: BUSPIRONE HCL 10 MG TABLET PO SCH (10:10)
--- NOTE | 2018-11-13 13:43 | Internal Med Progress Note ---
Hospitalist Progress Note - Encounter Date of Encounter: 11/13/18 Time of Encounter: 13:39 - Subjective Interval History: Patient still has black a cyst will but no fresh red blood. Morning lab report not available. Vitals stable. Denies fever chills nausea vomiting headache dizziness chest pain shortness of breath abdominal pain urinary complaint - Exam Vitals: Temp Pulse Resp BP Pulse Ox 97.8 F 84 16 147/73 96 11/13/18 11:21 11/13/18 11:21 11/13/18 11:21 11/13/18 11:21 11/13/18 11:21 Exam: GEN: NAD, morbidly obese CVS: RRR. S1, S2, No m/r/g RESP: CTAB , diminished breath sound most likely due to body habitus ABD: Soft, NT, ND, +BS EXT: No edema. 2+ DP. No rashes NEURO: Alert awake oriented, no focal neurological deficit. - Assessment and Plan (1) Acute blood loss anemia Current Visit: Yes Status: Acute Assessment and Plan: Transfused a total of 3 units since admission. Trending up hemoglobin 8.2 today. No active bleeding at this time but still has black stool that could be been old blood in the GI system. Tolerating soft diet. No CBC report available. Plan to advance the diet and change PPI to oral and monitor hemoglobin just to make sure that hemoglobin not trending down especially is still having black stool. Plan for discharge possibly tomorrow after getting clearance from GI specialist PPI drip was stopped on 2018. Patient denies any cardio vascular history in the past. (2) Diabetes Current Visit: Yes Status: Acute Assessment and Plan: Well controlled blood glucose level. Blood glucose level was running low therefore decreaseD insulin Levemir 10 units in the night. Now better blood glucose level. Continue Accu-Chek. Will start diabetic diet when able to eat. (3) Morbid obesity Current Visit: Yes Status: Acute Assessment and Plan: Counseled about healthy diet and lifestyle (4) Symptomatic cholelithiasis Current Visit: Yes Status: Chronic Assessment and Plan: will need to follow-up with surgery in the outpatient setting once acute issues are resolved here. (5) Hyperkalemia Current Visit: Yes Status: Acute Assessment and Plan: Resolved. (6) Hypomagnesemia Current Visit: Yes Status: Acute Assessment and Plan: Replacement and monitor. (7) H/O malignant neoplasm of rectum Current Visit: Yes Status: Acute Assessment and Plan: Stable. (8) DVT prophylaxis Current Visit: Yes Status: Acute Assessment and Plan: SCDs - Time Spent with Patient Total time spent is greater than 50% in coordination of care (as documented) at patient's floor/unit and/or counseling patient: 25 - 35 minutes Plan of Care Discussed with: patient Internal Medicine: Result - Labs CBC & Chem 7: 11/12/18 04:50 11/12/18 04:50 - ABG Interpretation ABG results: PT/INR, D-dimer PT 11.7 Seconds (9.4-12.1) 11/08/18 04:14 Consult Discharge Plan - Plan Referrals: Nathaly Segovia MD [Partnered Physician] - 11/24/18 9:55 am NONE,PCP [Primary Care Provider] - ____ (2) Diabetes Qualifiers: Diabetes mellitus type: type 2 Diabetes mellitus halfway insulin use: with halfway use Diabetes mellitus complication status: without complication Qualified Code(s): E11.9 - Type 2 diabetes mellitus without complications; 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
[2018-11-13] MEDS: Pantoprazole 40 MG in 0.9 % Sodium Chloride Mini Bag 100 ML IVC SCH (21:28)
[2018-11-13] MEDS: 0.9 % Sodium Chloride 1,000 ML IVC SCH (21:29)
[2018-11-13] MEDS: traZODone 50 MG TABLET PO SCH (21:41)
[2018-11-13] MEDS: tiZANidine 4 MG TABLET PO SCH (21:42)
[2018-11-13] MEDS: Insulin DETEMIR 100 UNIT/ML X5UNITS SQ SCH (21:42)
[2018-11-14 05:23] LABS: Basophils % 0.7 %; Eosinophils # 0.2 K/mcL (0.0-0.6); Eosinophils % 3.4 %; Hematocrit 25.3 % (35.3-44.9); Hemoglobin 7.9 g/dL (11.5-15.4); Immature Granulocytes % 0.2 % (0-4); Lymphocytes # 1.4 K/mcL (0.6-4.6); Lymphocytes % 31.2 %; Mean Corpuscular HGB Conc 31.2 g/dL (31.6-35.5); Mean Corpuscular Hemoglobin 28.9 pg (28.0-33.3); Mean Corpuscular Volume 92.7 fL (83.0-100.0); Mean Platelet Volume 11.3 fL (9.4-12.4); Monocytes # 0.4 K/mcL (0.0-1.3); Monocytes % 9.4 %; Neutrophils # 2.4 K/mcL (1.6-8.9); Platelet Count 183 K/mcL (140-400); Red Blood Count 2.73 M/mcL (3.82-4.97); Red Cell Distribution Width 15.3 % (11.5-14.5); Segmented Neutrophils % 55.1 %
[2018-11-14 05:38] LABS: BUN/Creatinine Ratio 17 (6-26); Blood Urea Nitrogen 13 mg/dL (8-23); Calcium 8.2 mg/dL (8.6-10.3); Carbon Dioxide 26 mEq/L (23-29); Chloride 112 mEq/L (98-107); Glucose 139 mg/dL (70-105); Magnesium 1.8 mg/dL (1.6-2.6); Osmolality,Calculated 298 (280-300); Phosphorous 3.2 mg/dL (2.7-4.5); Potassium 4.3 mEq/L (3.5-5.1); Sodium 143 mEq/L (136-145); eGFR For Non-African Americans > 60 (> 60)
[2018-11-14] MEDS: Insulin LISPRO 300 UNITS/3 ML VIAL SQ SCH ×4 (08:51→20:54)
[2018-11-14] MEDS: BUSPIRONE HCL 10 MG TABLET PO SCH (08:57)
--- NOTE | 2018-11-14 15:22 | Event Note ---
Date of Encounter: 11/14/18 Time of Encounter: 15:[address] Neely. EGD 11/09 with oozing cratered gastric ulcer with visible vessel complete hemostasis achieved with gold probe. Hgb decreased to 7.9 today. Recheck CBC in AM. If Hgb stable, okay for discharge tomorrow. Monitor for melena, last black stool 11/10. Follow-up in GI office with Dr. Paredes in 4-6 weeks.
--- NOTE | 2018-11-14 15:36 | Internal Med Progress Note ---
Hospitalist Progress Note - Encounter Date of Encounter: 11/14/18 Time of Encounter: 15:34 - Subjective Interval History: No Stool overnight. Last black stool yesterday. Review the lab with trending down hemoglobin but no active bleeding visible. Lying comfortably in bed. Denies fever chills nausea vomiting headache dizziness chest pain shortness of b reath urinary bowel complaint abdominal pain. - Exam Vitals: Temp Pulse Resp BP Pulse Ox 98 F 78 16 142/77 97 11/14/18 10:43 11/14/18 10:43 11/14/18 10:43 11/14/18 10:43 11/14/18 10:43 Exam: GEN: NAD, morbidly obese CVS: RRR. S1, S2, No m/r/g RESP: CTAB , diminished breath sound most likely due to body habitus ABD: Soft, NT, ND, +BS EXT: No edema. 2+ DP. No rashes NEURO: Alert awake oriented, no focal neurological deficit. - Assessment and Plan (1) Acute blood loss anemia Current Visit: Yes Status: Acute Assessment and Plan: Transfused a total of 3 units since admission. No active bleeding at this time Plan to advance the diet and change PPI to oral . Trending down hemoglobin slightly. Talk to GI team who advised to keep patient overnight repeat CBC in the morning and if is stable hemoglobin 10 patient can be discharged on oral PPI twice a day follow-up with GI specialist in 4-6 week. PPI drip was stopped on 2018. Patient denies any cardio vascular history in the past. (2) Diabetes Current Visit: Yes Status: Acute Assessment and Plan: Well controlled blood glucose level. Blood glucose level was running low therefore decreaseD insulin Levemir 10 units in the night. Now better blood glucose level. Continue Accu-Chek. Will start diabetic diet when able to eat. (3) Morbid obesity Current Visit: Yes Status: Acute (4) Symptomatic cholelithiasis Current Visit: Yes Status: Chronic Assessment and Plan: will need to follow-up with surgery in the outpatient setting once acute issues are resolved here. (5) Hyperkalemia Current Visit: Yes Status: Acute Assessment and Plan: Resolved. (6) Hypomagnesemia Current Visit: Yes Status: Acute Assessment and Plan: Replacement and monitor. (7) H/O malignant neoplasm of rectum Current Visit: Yes Status: Acute Assessment and Plan: Stable. (8) DVT prophylaxis Current Visit: Yes Status: Acute Assessment and Plan: SCDs - Time Spent with Patient Total time spent is greater than 50% in coordination of care (as documented) at patient's floor/unit and/or counseling patient: 25 - 35 minutes Plan of Care Discussed with: [facility]pm consultant Internal Medicine: Result - Labs CBC & Chem 7: 11/14/18 04:50 11/14/18 04:50 Labs: Short CBC 11/14/18 Range/Units 04:50 WBC 4.4 (4.3-11.1) K/mcL Hgb 7.9 L (11.5-15.4) g/dL Hct 25.3 L (35.3-44.9) % Plt Count 183 (140-400) K/mcL Neutrophils # 2.4 (1.6-8.9) K/mcL BMP 11/14/18 04:50 Sodium 143 Potassium 4.3 Chloride 112 H Carbon Dioxide 26 BUN 13 Creatinine 0.77 Glucose 139 H Calcium 8.2 L - ABG Interpretation ABG results: PT/INR, D-dimer PT 11.7 Seconds (9.4-12.1) 11/08/18 04:14 Consult Discharge Plan - Plan Referrals: Nathaly Segovia MD [Partnered Physician] - 11/24/18 9:55 am NONE,PCP [Primary Care Provider] - (2) Diabetes Qualifiers: Diabetes mellitus type: type 2 Diabetes mellitus snf insulin use: with snf use Diabetes mellitus complication status: without complication Qualified Code(s): E11.9 - Type 2 diabetes mellitus without complications; 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
[2018-11-14] MEDS: tiZANidine 4 MG TABLET PO SCH (20:53)
[2018-11-14] MEDS: traZODone 50 MG TABLET PO SCH (20:53)
[2018-11-14] MEDS: traMADol 50 MG TABLET PO PRN (20:56)
[2018-11-14] MEDS: Insulin DETEMIR 100 UNIT/ML X5UNITS SQ SCH (20:56)
[2018-11-15 06:12] LABS: Basophils % 0.7 %; Eosinophils # 0.2 K/mcL (0.0-0.6); Eosinophils % 3.4 %; Hematocrit 26.5 % (35.3-44.9); Hemoglobin 8.1 g/dL (11.5-15.4); Immature Granulocytes % 0.2 % (0-4); Lymphocytes # 1.3 K/mcL (0.6-4.6); Lymphocytes % 29.7 %; Mean Corpuscular HGB Conc 30.6 g/dL (31.6-35.5); Mean Corpuscular Hemoglobin 28.8 pg (28.0-33.3); Mean Corpuscular Volume 94.3 fL (83.0-100.0); Mean Platelet Volume 11.2 fL (9.4-12.4); Monocytes # 0.4 K/mcL (0.0-1.3); Monocytes % 8.9 %; Neutrophils # 2.5 K/mcL (1.6-8.9); Platelet Count 179 K/mcL (140-400); Red Blood Count 2.81 M/mcL (3.82-4.97); Red Cell Distribution Width 15.1 % (11.5-14.5); Segmented Neutrophils % 57.1 %
[2018-11-15 06:32] LABS: BUN/Creatinine Ratio 21 (6-26); Blood Urea Nitrogen 15 mg/dL (8-23); Calcium 8.3 mg/dL (8.6-10.3); Carbon Dioxide 25 mEq/L (23-29); Chloride 111 mEq/L (98-107); Glucose 182 mg/dL (70-105); Osmolality,Calculated 299 (280-300); Potassium 4.2 mEq/L (3.5-5.1); Sodium 142 mEq/L (136-145); eGFR For Non-African Americans > 60 (> 60)
[2018-11-15 08:02] VITALS: BP 144/83
[2018-11-15] MEDS: BUSPIRONE HCL 10 MG TABLET PO SCH (08:46)
[2018-11-15] MEDS: Insulin LISPRO 300 UNITS/3 ML VIAL SQ SCH (08:47)
--- NOTE | 2018-11-15 10:39 | Discharge Summary ---
- NOTES TO OUTPATIENT PROVIDER Notes to Outpatient Provider: Follow-up with GI specialist in 2 weeks-get clearance to restart aspirin. Follow-up with PCP in 3-5 days. Follow with general surgeon for elective cholecystectomy discussion in 1 week Orders not resulted at time of discharge: Pending orders 11/07/18 20:04 Occult Blood,Stool [BF] Stat 11/16/18 04:00 BMP [Basic Metabolic Panel] AM 0400 Date of Encounter: 11/15/18 Time of Encounter: 10:36 - Discharge Diagnosis (1) Acute blood loss anemia Priority: Primary Status: Acute Assessment and Plan: Transfused a total of 3 units since admission. No active bleeding at this time Tolerating soft diet with no further active bleeding. No bowel movements since overnight. Repeat CBC with trending up hemoglobin. Clear from GI standpoint by GI specialist to discharge on PPI twice a day and follow-up in OPD 4 weeks. Patient denies any cardio vascular history in the past. (2) Diabetes Priority: Secondary Status: Acute Assessment and Plan: Well controlled blood glucose level on 10 units of Levemir in the night. Patient was taking high dose of Levemir 65 in the night and 48 in the morning. Continue Accu-Chek and further adjustment in Levemir dose if needed (3) Morbid obesity Priority: Secondary Status: Acute Assessment and Plan: Counseled about healthy diet and lifestyle (4) Symptomatic cholelithiasis Priority: Primary Status: Chronic Assessment and Plan: will need to follow-up with surgery in the outpatient setting once acute issues are resolved here. Follow-up with general surgeon in one week (5) Hyperkalemia Priority: Primary Status: Acute Assessment and Plan: Resolved. (6) Hypomagnesemia Priority: Primary Status: Acute Assessment and Plan: Will restart low-dose magnesium supplementation on a daily basis. Further monitoring of magnesium level as per her PCP (7) H/O malignant neoplasm of rectum Priority: Secondary Status: Acute Assessment and Plan: Stable. (8) CVA (cerebral vascular accident) Priority: Secondary Status: Chronic Assessment and Plan: History with left-sided weakness therefore patient is in ecf to get inpatient rehabilitation. Patient was on baby aspirin. Will hold baby aspirin until that cleared from GI specialist in 2 weeks as patient had recently diagnosed with gastric ulcer. Explained the risk and benefit stroke versus bleeding to the patient and patient agrees to hold the aspirin for now. Qualifiers: CVA mechanism: unspecified Qualified Code(s): I63.9 - Cerebral infarction, unspecified Hospital course: Ms. Triana is a 68 year old female patient got admitted for newly diagnosed active bleeding gastric ulcer at the anastomosis. GI was consulted. Please see detail in diagnosis section of discharge summary. At the time of discharge patient is clinically hemodynamically stable, tolerating soft diet and able to ambulate with the help of walker. No melena or hematemesis hematochezia. Discharge discussed with: patient, nurse, social work, case management, consultant internship - Time Spent with Patient Total time spent providing and/or coordinating discharge services: Time spent: Greater than 30 minutes - Discharge Medications Prescriptions: New Omeprazole [PriLOSEC] 40 mg PO BIDAC #0 capsule.dr Insulin DETEMIR [Levemir] 10 unit SQ HS [id number] Insulin LISPRO [HumaLOG] 0 units SQ TIDAC vial Insulin LISPRO [HumaLOG] 0 units SQ HS vial Magnesium Oxide [Mag-Oxide Magnesium] 200 mg PO DAILY #30 tablet Continue Buspirone HCl [Buspar] 10 mg PO QAM Tizanidine HCl [Zanaflex] 4 mg PO HS Trazodone HCl 100 mg PO HS Simvastatin [Zocor] 40 mg PO DAILY Albuterol Sulfate [Ventolin Hfa] 2 gm IH Q6H PRN PRN Reason: Shortness Of Breath Insulin ASPART [Novolog Flexpen] 2 - 10 unit SQ QID Acetaminophen [Extra Strength Non-Aspirin] 1,000 mg PO Q4H PRN PRN Reason: PAIN/FEVER Insulin DETEMIR [Levemir] 60 units SQ HS Lisinopril [Zestril] 10 mg PO DAILY Insulin DETEMIR [Levemir] 48 units SQ DAILY Discontinued Aspirin 81 mg PO DAILY Home Medications: Albuterol Sulfate [Ventolin Hfa] 2 gm IH Q6H PRN 07/28/18 [History] Buspirone HCl [Buspar] 10 mg PO QAM 07/28/18 [History] Insulin ASPART [Novolog Flexpen] 2 - 10 unit SQ QID 07/28/18 [History] Simvastatin [Zocor] 40 mg PO DAILY 07/28/18 [History] Tizanidine HCl [Zanaflex] 4 mg PO HS 07/28/18 [History] Trazodone HCl 100 mg PO HS 07/28/18 [History] Acetaminophen [Extra Strength Non-Aspirin] 1,000 mg PO Q4H PRN 11/07/18 [History] Insulin DETEMIR [Levemir] 48 units SQ DAILY 11/07/18 [History] Insulin DETEMIR [Levemir] 60 units SQ HS 11/07/18 [History] Lisinopril [Zestril] 10 mg PO DAILY 11/07/18 [History] Insulin DETEMIR [Levemir] 10 unit SQ HS [id number] 11/15/18 [Rx] Insulin LISPRO [HumaLOG] 0 units SQ HS vial 11/15/18 [Rx] Insulin LISPRO [HumaLOG] 0 units SQ TIDAC vial 11/15/18 [Rx] Magnesium Oxide [Mag-Oxide Magnesium] 200 mg PO DAILY #30 tablet 11/15/18 [Rx] Omeprazole [PriLOSEC] 40 mg PO BIDAC #0 capsule. 11/15/18 [Rx] Allergies/Adverse Reactions: Allergy/AdvReac Type Severity Reaction Status Date / Time Amoxicillin [From Augmentin] Allergy See Verified 11/07/18 13:03 Comments clavulanic acid Allergy See Verified 11/07/18 13:03 [From Augmentin] Comments nitrofurantoin Allergy unknown Verified 11/07/18 13:03 sertraline [From Zoloft] Allergy unknown Verified 11/07/18 13:03 shellfish derived Allergy Anaphylaxis Verified 11/07/18 13:03 Sulfa (Sulfonamide Allergy Hives Verified 11/07/18 13:03 Antibiotics) meperidine [From Demerol] AdvReac Headache Verified 11/07/18 13:03 Date of admission: 11/08/18 17:26 Primary care physician: PCP NONE Consults: 11/07/18 20:50 Consult to Gastroenterology [CONS] Routine Consulting Provider: Gastroenterology Funmi Reason for Consult: Patient presented for elective laparoscopic cholecystectomy who became hypotensive after anesthesia found only postop to have a Hgb of 6.9 and reporting dark stool for weeks Call Completed: No 11/08/18 09:22 Consult to Nephrology [CONS] Routine Consulting Provider: Kidney Funmi/MARLENY/SHELBIE/ROMULO Reason for Consult: hyperkalemia Call Completed: No 11/08/18 14:58 Consult to Bar Tacker [CONS] Routine Reason for SW Consult: Patient is from [facility] and would like to return at time of discharge 11/09/18 09:18 Consult to Occupational Therapy [CONS] Routine Comment: Evaluate, develop and implement POC Reason for Consult: therapy/placement needs Does patient have active BEDREST order?: No Is patient medically & hemodynamically stable?: Yes 11/09/18 09:19 Consult to Physical Therapy [CONS] Routine Comment: Evaluate, develop and implement POC Reason for Consult: PT eval Does patient have active BEDREST order?: No Is patient medically & hemodynamically stable?: Yes - Constitutional Vitals: Temp Pulse Resp BP Pulse Ox 98.2 F 76 17 144/83 98 11/15/18 08:01 11/15/18 08:01 11/15/18 08:01 11/15/18 08:01 11/15/18 08:01 Exam: General appearance: No acute distress, A&O X 3, obese Head exam: Atraumatic Eye exam: EOMI, PERRLA ENT exam: Moist oral mucosa Neck nontender, supple Respiratory exam: Clear to auscultation bilaterally Cardiovascular exam: Regular rate and rhythm, no systolic murmur Abdominal exam: Soft, nontender, nondistended, positive bowel sounds Extremities exam: No calf tenderness, no pedal edema Present: Neurological exam: Alert, awake, oriented 3, CN II-XII intact. Romberg with the help of walker due to left-sided weakness secondary to his stroke - Patient Status Disposition: Transfer SNF Condition: Good Overall status at discharge: patient is progressing back to baseline - Discharge Instructions Instructions: Anemia (GEN) Follow Up With: Nathaly Segovia MD [Partnered Physician] - 11/24/18 9:55 am NONE,PCP [Primary Care Provider] - - Diet and Activity Diet: advance to your usual diet, diabetic diet
--- NOTE | 2018-11-15 11:43 | Physician Discharge Referral ---
ExtendedCare Referral Info Transfer To: [facility] Institutional Level of Care: Skilled - Diagnosis (1) Acute blood loss anemia Priority: Primary Status: Acute (2) Diabetes Priority: Primary Status: Acute (3) Morbid obesity Priority: Secondary Status: Acute (4) Symptomatic cholelithiasis Priority: Primary Status: Chronic (5) Hyperkalemia Priority: Primary Status: Acute (6) Hypomagnesemia Priority: Primary Status: Acute (7) H/O malignant neoplasm of rectum Priority: Secondary Status: Acute (8) CVA (cerebral vascular accident) Priority: Secondary Status: Chronic Prognosis: Fair Aware of Diagnosis: Patient Aware of Prognosis: Patient - Transfer Medications Prescriptions: Magnesium Oxide [Mag-Oxide Magnesium] 200 mg PO DAILY #30 tablet Home Medications: Albuterol Sulfate [Ventolin Hfa] 2 gm IH Q6H PRN 07/28/18 [History] Buspirone HCl [Buspar] 10 mg PO QAM 07/28/18 [History] Insulin ASPART [Novolog Flexpen] 2 - 10 unit SQ QID 07/28/18 [History] Simvastatin [Zocor] 40 mg PO DAILY 07/28/18 [History] Tizanidine HCl [Zanaflex] 4 mg PO HS 07/28/18 [History] Trazodone HCl 100 mg PO HS 07/28/18 [History] Acetaminophen [Extra Strength Non-Aspirin] 1,000 mg PO Q4H PRN 11/07/18 [History] Insulin DETEMIR [Levemir] 48 units SQ DAILY 11/07/18 [History] Insulin DETEMIR [Levemir] 60 units SQ HS 11/07/18 [History] Lisinopril [Zestril] 10 mg PO DAILY 11/07/18 [History] Insulin DETEMIR [Levemir] 10 unit SQ HS [id number] 11/15/18 [Rx] Insulin LISPRO [HumaLOG] 0 units SQ HS vial 11/15/18 [Rx] Insulin LISPRO [HumaLOG] 0 units SQ TIDAC vial 11/15/18 [Rx] Magnesium Oxide [Mag-Oxide Magnesium] 200 mg PO DAILY #30 tablet 11/15/18 [Rx] Omeprazole [PriLOSEC] 40 mg PO BIDAC #0 capsule. 11/15/18 [Rx] Allergies/Adverse Reactions: Allergy/AdvReac Type Severity Reaction Status Date / Time Amoxicillin [From Augmentin] Allergy See Verified 11/07/18 13:03 Comments clavulanic acid Allergy See Verified 11/07/18 13:03 [From Augmentin] Comments nitrofurantoin Allergy unknown Verified 11/07/18 13:03 sertraline [From Zoloft] Allergy unknown Verified 11/07/18 13:03 shellfish derived Allergy Anaphylaxis Verified 11/07/18 13:03 Sulfa (Sulfonamide Allergy Hives Verified 11/07/18 13:03 Antibiotics) meperidine [From Demerol] AdvReac Headache Verified 11/07/18 13:03 - Respiratory Orders Smoking Cessation: Smoking cessation has been advised. For more information, call the [place] Tobacco Quit Line at 2-692-EEQX-NOW. - Rehabiliation Orders Rehab Orders: Evaluation for Physical Therapy, Evaluation for Occupational Therapy - Diet Orders Mechanical Soft CERTIFICATION: I certify that the transfer of the above named patient to an Extended Care Facility is necessary for the continuing treatment of the diagnosis listed. The above information is true and accurate reflection of patient's current condition. Confidential - Redisclosure prohibited without a patient's written consent.
== END 2018-11-15 13:00 | DRG 420 ==
LOC: 3ANU 12:14 → SAMDAY 12:14
PROVIDERS: ADMIT Hospitalist; ATTEND General Practice

== ENCOUNTER 2022-03-20 13:33 | Inpatient (IN) ==
[2022-03-20 17:50] LABS: Basophils % 0.6 %; Eosinophils # 0.2 K/mcL (0.0-0.6); Eosinophils % 2.9 %; Hematocrit 32.6 % (35.3-44.9); Hemoglobin 9.6 g/dL (11.5-15.4); Immature Granulocytes % 0.2 % (0-4); Lymphocytes # 1.7 K/mcL (0.6-4.6); Lymphocytes % 31.9 %; Mean Corpuscular HGB Conc 29.4 g/dL (31.6-35.5); Mean Corpuscular Hemoglobin 27.7 pg (28.0-33.3); Mean Corpuscular Volume 94.2 fL (83.0-100.0); Mean Platelet Volume 12.8 fL (9.4-12.4); Monocytes # 0.4 K/mcL (0.0-1.3); Monocytes % 8.5 %; Neutrophils # 2.9 K/mcL (1.6-8.9); Platelet Count 182 K/mcL (140-400); Red Blood Count 3.46 M/mcL (3.82-4.97); Red Cell Distribution Width 15.2 % (11.5-14.5); Segmented Neutrophils % 55.9 %; White Blood Count 5.2 K/mcL (4.3-11.1)
[2022-03-20 18:11] LABS: Albumin 3.3 g/dL (3.5-5.7); Bilirubin,Total 0.3 mg/dL (0.3-1.0); Calcium 8.5 mg/dL (8.6-10.3); Globulin 3.2 g/dL (2.4-3.5); Potassium 5.2 mEq/L (3.5-5.1); Total Protein 6.5 g/dL (6.4-8.9)
[2022-03-20 19:28] LABS: Bacteria,Urine Moderate per hpf (None-Few); Bilirubin,Urine Negative (Negative); Blood,Urine Small (Negative); Budding Yeast,Urine Many per hpf (None Seen); Clarity,Urine Ex.Turbid (Clear); Color,Urine Yellow (Yellow); Glucose,Urine (UA) 300 mg/dL (Normal); Ketones,Urine Negative (Negative); Leukocyte Esterase,Urine Large (Negative); Mucus,Urine Few per lpf (None-Few); Nitrite,Urine Negative (Negative); PH,Urine 5.5 pH Units (5.0-8.0); Protein,Urine 50 mg/dL (Neg-Trace); RBC,Urine 15-30 per hpf (0-3); Specific Gravity,Urine 1.016 (1.010-1.025); Squamous Epithelial Cell,Urine Many per hpf (None-Few); Transitional Epi Cells,Urine Few per hpf (None-Few); Urobilinogen,Urine Normal (Normal); WBC,Urine TNTC per hpf (0-3)
[2022-03-20] MEDS ORDERED: 0.9 % Sodium Chloride 1,000 ML IVC ONE (19:31)
[2022-03-20] MEDS ORDERED: cefTRIAXone 1,000 MG in Water for inj. (sterile) 10 ML IVP ONE (19:31)
[2022-03-20] MEDS ORDERED: Piperacillin/Tazobactam 3.375 GM in 0.9 % Sodium Chloride Mini Bag 100 ML IVPB ONE (22:53)
[2022-03-20] MEDS ORDERED: Ondansetron 4 MG/2 ML VIAL IVP PRN (23:14)
[2022-03-20] MEDS ORDERED: Acetaminophen 325 MG TABLET PO PRN (23:14)
[2022-03-20] MEDS ORDERED: Naloxone 0.4 MG/ML INJ IVP PRN (23:14)
[2022-03-20] MEDS ORDERED: Dextrose Gel 15 GM/37.5 ML TUBE PO PRN ×2 (23:40)
[2022-03-20] MEDS ORDERED: *HR* Dextrose 50 % in Water (Syg) 50 ML SYRINGE IVP PRN (23:40)
[2022-03-20] MEDS ORDERED: D5% in Water 1,000 ML IVC PRN (23:40)
[2022-03-21] MEDS: Insulin LISPRO 300 UNITS/3 ML VIAL SUBQ SCH ×6 (00:52→20:42)
[2022-03-21] MEDS: Insulin DETEMIR 100 UNIT/ML X5UNITS SUBQ SCH ×2 (00:53→21:54)
[2022-03-21] MEDS: 0.9 % Sodium Chloride 1,000 ML IVC SCH ×5 (01:21→19:58)
[2022-03-21 02:43] LABS: Hemoglobin 9.7 g/dL (11.5-15.4); Mean Corpuscular HGB Conc 29.4 g/dL (31.6-35.5); Mean Corpuscular Hemoglobin 27.8 pg (28.0-33.3); Mean Corpuscular Volume 94.6 fL (83.0-100.0); Mean Platelet Volume 12.7 fL (9.4-12.4); Platelet Count 181 K/mcL (140-400); Red Blood Count 3.49 M/mcL (3.82-4.97); Red Cell Distribution Width 15.1 % (11.5-14.5); White Blood Count 5.7 K/mcL (4.3-11.1)
[2022-03-21 02:56] LABS: Calcium 8.2 mg/dL (8.6-10.3)
[2022-03-21 03:20] LABS: Adenovirus Not Detected (Not Detect); Bordetella Pertussis Not Detected (Not Detect); Chlamydophila pneumoniae Not Detected (Not Detect); Coronavirus 229E Not Detected (Not Detect); Coronavirus HKU1 Not Detected (Not Detect); Coronavirus NL63 Not Detected (Not Detect); Coronavirus OC43 Not Detected (Not Detect); Human Metapneumovirus Not Detected (Not Detect); Human Rhinovirus/Enterovirus Not Detected (Not Detect); Influenza A Subtype 2009 H1 Not Detected (Not Detect); Influenza B Not Detected (Not Detect); Mycoplasma pneumoniae Not Detected (Not Detect); Parainfluenza Virus 1 Not Detected (Not Detect); Parainfluenza Virus 2 Not Detected (Not Detect); Parainfluenza Virus 3 Not Detected (Not Detect); Parainfluenza Virus 4 Not Detected (Not Detect); Respiratory Syncytial Virus Not Detected (Not Detect); SARS-CoV-2 Not Detected (Not Detect)
[2022-03-21 04:01] LABS: Estimated Average Glucose 246 mg/dl; Hemoglobin A1C 10.2 %
[2022-03-21] MEDS: *HR* Heparin 5,000 UNIT/ML VIAL SQ SCH ×3 (06:48→21:54)
[2022-03-21] MEDS: Piperacillin/Tazobactam 3.375 GM in 0.9 % Sodium Chloride Mini Bag 100 ML IVPB SCH ×3 (08:25→23:27)
[2022-03-21 09:50] LABS: Amphetamine Screen,Urine Negative ng/mL (Cutoff=1000); Barbiturate Screen,Urine Negative ng/mL (Cutoff=200); Benzodiazepines Screen,Urine Negative ng/mL (Cutoff=200); Cannabinoid Screen,Urine Negative ng/mL (Cutoff = 50); Cocaine Screen,Urine Negative ng/mL (Cutoff= 300); Opiate Screen,Urine Negative ng/mL (Cutoff=300); Phencyclidine Screen,Urine Negative ng/mL (Cutoff=25)
[2022-03-21] MEDS ORDERED: Furosemide 20 MG TABLET PO SCH (17:45)
[2022-03-21] MEDS: traZODone 50 MG TABLET PO SCH (19:53)
[2022-03-21] MEDS: Gabapentin 100 MG CAPSULE PO SCH (19:53)
[2022-03-22] MEDS: Insulin LISPRO 300 UNITS/3 ML VIAL SUBQ SCH ×7 (00:23→23:44)
[2022-03-22] MEDS: 0.9 % Sodium Chloride 1,000 ML IVC SCH ×3 (05:18→23:49)
[2022-03-22] MEDS: *HR* Heparin 5,000 UNIT/ML VIAL SQ SCH ×3 (05:19→20:42)
[2022-03-22 05:42] LABS: Basophils % 0.7 %; Eosinophils # 0.2 K/mcL (0.0-0.6); Eosinophils % 4.5 %; Hematocrit 30.8 % (35.3-44.9); Immature Granulocytes % 0.4 % (0-4); Lymphocytes # 1.4 K/mcL (0.6-4.6); Lymphocytes % 26.8 %; Mean Corpuscular HGB Conc 29.2 g/dL (31.6-35.5); Mean Corpuscular Hemoglobin 27.5 pg (28.0-33.3); Mean Corpuscular Volume 94.2 fL (83.0-100.0); Mean Platelet Volume 12.6 fL (9.4-12.4); Monocytes # 0.4 K/mcL (0.0-1.3); Neutrophils # 3.2 K/mcL (1.6-8.9); Platelet Count 170 K/mcL (140-400); Red Blood Count 3.27 M/mcL (3.82-4.97); Red Cell Distribution Width 15.2 % (11.5-14.5); Segmented Neutrophils % 59.6 %; White Blood Count 5.4 K/mcL (4.3-11.1)
[2022-03-22 05:54] LABS: Calcium 8.1 mg/dL (8.6-10.3); Potassium 5.1 mEq/L (3.5-5.1)
[2022-03-22] MEDS: Piperacillin/Tazobactam 3.375 GM in 0.9 % Sodium Chloride Mini Bag 100 ML IVPB SCH ×3 (08:45→23:46)
[2022-03-22] MEDS: Cyanocobalamin (B-12) 1,000 MCG TABLET PO SCH (08:45)
[2022-03-22] MEDS: Gabapentin 100 MG CAPSULE PO SCH ×2 (08:45→20:42)
[2022-03-22] MEDS: traZODone 50 MG TABLET PO SCH (20:42)
[2022-03-22] MEDS: Insulin DETEMIR 100 UNIT/ML X5UNITS SUBQ SCH (20:42)
[2022-03-23] MEDS: *HR* Heparin 5,000 UNIT/ML VIAL SQ SCH ×3 (04:21→20:26)
[2022-03-23] MEDS: Insulin LISPRO 300 UNITS/3 ML VIAL SUBQ SCH ×6 (04:21→23:50)
[2022-03-23 06:43] LABS: Basophils % 0.8 %; Eosinophils # 0.2 K/mcL (0.0-0.6); Eosinophils % 4.6 %; Hematocrit 25.7 % (35.3-44.9); Hemoglobin 7.5 g/dL (11.5-15.4); Immature Granulocytes % 0.2 % (0-4); Lymphocytes # 1.8 K/mcL (0.6-4.6); Mean Corpuscular HGB Conc 29.2 g/dL (31.6-35.5); Mean Corpuscular Hemoglobin 27.8 pg (28.0-33.3); Mean Corpuscular Volume 95.2 fL (83.0-100.0); Mean Platelet Volume 13.2 fL (9.4-12.4); Monocytes # 0.3 K/mcL (0.0-1.3); Monocytes % 6.1 %; Neutrophils # 2.7 K/mcL (1.6-8.9); Platelet Count 166 K/mcL (140-400); Red Cell Distribution Width 15.2 % (11.5-14.5); Segmented Neutrophils % 53.3 %; White Blood Count 5.1 K/mcL (4.3-11.1)
[2022-03-23 07:00] LABS: Platelet Estimate Normal (Normal)
[2022-03-23 07:28] LABS: Calcium 8.1 mg/dL (8.6-10.3); Potassium 5.3 mEq/L (3.5-5.1)
[2022-03-23] MEDS: Cyanocobalamin (B-12) 1,000 MCG TABLET PO SCH (08:23)
[2022-03-23] MEDS: Piperacillin/Tazobactam 3.375 GM in 0.9 % Sodium Chloride Mini Bag 100 ML IVPB SCH ×3 (08:23→23:26)
[2022-03-23] MEDS: Gabapentin 100 MG CAPSULE PO SCH ×2 (08:23→20:26)
[2022-03-23] MEDS: 0.9 % Sodium Chloride 1,000 ML IVC SCH (11:55)
[2022-03-23] MEDS ORDERED: SODIUM ZIRCONIUM CYCLOSILICATE 5 GM POWD.PACK PO SCH (18:15)
[2022-03-23] MEDS: lisinopriL 10 MG TABLET PO SCH (20:26)
[2022-03-23] MEDS: traZODone 50 MG TABLET PO SCH (20:26)
[2022-03-23] MEDS: Insulin DETEMIR 100 UNIT/ML X5UNITS SUBQ SCH (20:27)
[2022-03-24 02:51] LABS: Basophils % 0.7 %; Eosinophils # 0.3 K/mcL (0.0-0.6); Eosinophils % 4.5 %; Hematocrit 26.2 % (35.3-44.9); Hemoglobin 7.7 g/dL (11.5-15.4); Immature Granulocytes % 0.5 % (0-4); Lymphocytes # 1.9 K/mcL (0.6-4.6); Mean Corpuscular HGB Conc 29.4 g/dL (31.6-35.5); Mean Corpuscular Hemoglobin 27.8 pg (28.0-33.3); Mean Corpuscular Volume 94.6 fL (83.0-100.0); Mean Platelet Volume 12.7 fL (9.4-12.4); Monocytes # 0.4 K/mcL (0.0-1.3); Monocytes % 7.9 %; Neutrophils # 2.9 K/mcL (1.6-8.9); Platelet Count 165 K/mcL (140-400); Red Blood Count 2.77 M/mcL (3.82-4.97); Segmented Neutrophils % 52.4 %; White Blood Count 5.6 K/mcL (4.3-11.1)
[2022-03-24 03:24] LABS: Calcium 7.9 mg/dL (8.6-10.3)
[2022-03-24] MEDS: *HR* Heparin 5,000 UNIT/ML VIAL SQ SCH ×3 (05:26→20:27)
[2022-03-24] MEDS: Insulin LISPRO 300 UNITS/3 ML VIAL SUBQ SCH ×5 (06:44→20:26)
[2022-03-24] MEDS: Piperacillin/Tazobactam 3.375 GM in 0.9 % Sodium Chloride Mini Bag 100 ML IVPB SCH ×2 (08:18→17:10)
[2022-03-24] MEDS: Cyanocobalamin (B-12) 1,000 MCG TABLET PO SCH (08:20)
[2022-03-24] MEDS: Aspirin Enteric Coated 81 MG Tablet PO SCH (08:20)
[2022-03-24] MEDS: lisinopriL 10 MG TABLET PO SCH (08:20)
[2022-03-24] MEDS: Gabapentin 100 MG CAPSULE PO SCH ×2 (08:20→20:27)
[2022-03-24] MEDS ORDERED: Gabapentin 100 MG CAPSULE ONE (19:52)
[2022-03-24] MEDS ORDERED: traZODone 50 MG TABLET ONE (19:53)
[2022-03-24] MEDS ORDERED: *HR* Heparin 5,000 UNIT/ML VIAL ONE (19:54)
[2022-03-24] MEDS: traZODone 50 MG TABLET PO SCH (20:25)
[2022-03-24] MEDS: Insulin DETEMIR 100 UNIT/ML X5UNITS SUBQ SCH (20:27)
[2022-03-25] MEDS ORDERED: Haloperidol Lactate 5 MG/ML VIAL IM ONE (00:17)
[2022-03-25] MEDS: *HR* Heparin 5,000 UNIT/ML VIAL SQ SCH ×3 (05:01→22:41)
[2022-03-25] MEDS: Piperacillin/Tazobactam 3.375 GM in 0.9 % Sodium Chloride Mini Bag 100 ML IVPB SCH ×3 (06:50→16:22)
[2022-03-25] MEDS: Aspirin Enteric Coated 81 MG Tablet PO SCH (09:53)
[2022-03-25] MEDS: lisinopriL 10 MG TABLET PO SCH (09:53)
[2022-03-25] MEDS: Gabapentin 100 MG CAPSULE PO SCH ×2 (09:54→22:40)
[2022-03-25] MEDS: Cyanocobalamin (B-12) 1,000 MCG TABLET PO SCH (09:54)
[2022-03-25] MEDS: Insulin LISPRO 300 UNITS/3 ML VIAL SUBQ SCH ×4 (09:55→22:44)
[2022-03-25 14:02] LABS: Basophils % 0.5 %; Eosinophils # 0.2 K/mcL (0.0-0.6); Hematocrit 31.2 % (35.3-44.9); Hemoglobin 9.3 g/dL (11.5-15.4); Immature Granulocytes % 0.7 % (0-4); Lymphocytes # 1.4 K/mcL (0.6-4.6); Lymphocytes % 24.5 %; Mean Corpuscular HGB Conc 29.8 g/dL (31.6-35.5); Mean Corpuscular Hemoglobin 27.9 pg (28.0-33.3); Mean Corpuscular Volume 93.7 fL (83.0-100.0); Mean Platelet Volume 13.1 fL (9.4-12.4); Monocytes # 0.4 K/mcL (0.0-1.3); Monocytes % 7.8 %; Neutrophils # 3.6 K/mcL (1.6-8.9); Platelet Count 181 K/mcL (140-400); Red Blood Count 3.33 M/mcL (3.82-4.97); Red Cell Distribution Width 14.8 % (11.5-14.5); Segmented Neutrophils % 63.5 %; White Blood Count 5.6 K/mcL (4.3-11.1)
[2022-03-25 14:11] LABS: Potassium 5.7 mEq/L (3.5-5.1)
[2022-03-25 15:02] LABS: Adenovirus Not Detected (Not Detect); Bordetella Pertussis Not Detected (Not Detect); Chlamydophila pneumoniae Not Detected (Not Detect); Coronavirus 229E Not Detected (Not Detect); Coronavirus HKU1 Not Detected (Not Detect); Coronavirus NL63 Not Detected (Not Detect); Coronavirus OC43 Not Detected (Not Detect); Human Metapneumovirus Not Detected (Not Detect); Human Rhinovirus/Enterovirus Not Detected (Not Detect); Influenza A Subtype 2009 H1 Not Detected (Not Detect); Influenza B Not Detected (Not Detect); Mycoplasma pneumoniae Not Detected (Not Detect); Parainfluenza Virus 1 Not Detected (Not Detect); Parainfluenza Virus 2 Not Detected (Not Detect); Parainfluenza Virus 3 Not Detected (Not Detect); Parainfluenza Virus 4 Not Detected (Not Detect); Respiratory Syncytial Virus Not Detected (Not Detect)
[2022-03-25 15:05] LABS: SARS-CoV-2 DETECTED (Not Detect)
[2022-03-25] MEDS: traZODone 50 MG TABLET PO SCH (22:40)
[2022-03-25] MEDS: Insulin DETEMIR 100 UNIT/ML X5UNITS SUBQ SCH (22:45)
[2022-03-26] MEDS: Piperacillin/Tazobactam 3.375 GM in 0.9 % Sodium Chloride Mini Bag 100 ML IVPB SCH ×3 (00:49→18:37)
[2022-03-26] MEDS: *HR* Heparin 5,000 UNIT/ML VIAL SQ SCH ×2 (06:25→15:10)
[2022-03-26] MEDS: Gabapentin 100 MG CAPSULE PO SCH ×2 (09:49→20:41)
[2022-03-26] MEDS: lisinopriL 10 MG TABLET PO SCH (09:49)
[2022-03-26] MEDS: Cyanocobalamin (B-12) 1,000 MCG TABLET PO SCH (09:49)
[2022-03-26] MEDS: Aspirin Enteric Coated 81 MG Tablet PO SCH (09:49)
[2022-03-26] MEDS: Insulin LISPRO 300 UNITS/3 ML VIAL SUBQ SCH ×4 (09:50→20:52)
[2022-03-26] MEDS: traZODone 50 MG TABLET PO SCH (20:41)
[2022-03-26] MEDS: Insulin DETEMIR 100 UNIT/ML X5UNITS SUBQ SCH (20:42)
[2022-03-27] MEDS: *HR* Heparin 5,000 UNIT/ML VIAL SQ SCH ×3 (01:54→15:08)
[2022-03-27] MEDS: Piperacillin/Tazobactam 3.375 GM in 0.9 % Sodium Chloride Mini Bag 100 ML IVPB SCH (03:50)
[2022-03-27] MEDS: Insulin LISPRO 300 UNITS/3 ML VIAL SUBQ SCH ×3 (07:14→17:49)
[2022-03-27] MEDS: Gabapentin 100 MG CAPSULE PO SCH (08:33)
[2022-03-27] MEDS: Cyanocobalamin (B-12) 1,000 MCG TABLET PO SCH (08:33)
[2022-03-27] MEDS: Aspirin Enteric Coated 81 MG Tablet PO SCH (08:33)
[2022-03-27] MEDS: lisinopriL 10 MG TABLET PO SCH (08:33)
[2022-03-27 15:32] VITALS: BP 148/83; PULSE 73; TEMP 98.4; O2SAT 94
== END 2022-03-27 19:00 | disposition home health service (06) | DRG 689 ==
LOC: 3ANU 13:33 → EMEROOARM 13:33 → SUATTDRO 22:58 → 3ANU 03-21 00:02
PROVIDERS: ADMIT Internal Medicine; ATTEND Internal Medicine